=== PATIENT | male | born 1970 ===

== ENCOUNTER 2020-10-06 14:47 | Emergency (ER) | payer OTHER, SELFPAY ==
--- NOTE | 2020-10-06 15:24 | XR_ITS ---
EXAMINATION: XR KNEE, RIGHT CLINICAL INFORMATION: Pain COMPARISON: None TECHNIQUE: Four views of the right knee. FINDINGS: Bones and soft tissues are normal. No fracture or joint effusion. Alignment is anatomic. Joint spaces are well maintained. No abnormal soft tissue calcification. XR/XR knee RT 4V IMPRESSION: Normal right knee.
[2020-10-06 15:55] VITALS: BP 123/90; PULSE 73; RESP 16; TEMP 36.6; O2SAT 96; BMI 29.7
[2020-10-06] MEDS: Ketorolac Tromethamine 30 MG/ML VIAL IM (16:05)
--- NOTE | 2020-10-06 16:13 | ED_ITS ---
HPI - Extremity Injury (Lower) General Chief Complaint: Extremity Injury, Lower Stated Complaint: rt knee injury work related Source: patient Mode of arrival: wheelchair Limitations: no limitations History of Present Illness HPI Narrative: Patient presents to ED for right knee pain. Patient states he jumped over a wall and when he landed he heard a pop in his right knee. Patient states since then has not been able to put weight on his right leg due to knee pain. Patient denies fall to the ground, hitting head,or, loss of consciousness. Related Data Previous Rx's Medication Instructions Recorded cyclobenzaprine 10 mg PO TID PRN #15 tab 10/06/20 naproxen 500 mg PO BID PRN #20 tab 10/06/20 Allergies Allergy/AdvReac Type Severity Reaction Status Date / Time No Known Allergies Allergy Unverified 07/23/20 16:09 Review of Systems Review of Systems: Yes all other systems are reviewed and are negative Constitutional: Constitutional: Reports as per HPI and Reports no additional constitutional complaints Eyes: Eyes: Reports as per HPI and Reports no additional eye complaints ENT: Reports system reviewed and no additional complaints, except as documented and Reports as per HPI Cardiovascular: Cardiovascular: Reports as per HPI and Reports no additional cardiovascular complaints Respiratory: Respiratory: Reports as per HPI and Reports no additional respiratory complaints Gastrointestinal: Gastrointestinal: Reports as per HPI and Reports no additional gastrointestinal complaints Genitourinary: Genitourinary: Reports no additional male genitourinary complaints and Reports as per HPI Musculoskeletal: Musculoskeletal: Reports no additional musculoskeletal complaints, Reports as per HPI and Reports arthralgias ( Right knee) Neurologic: Reports system reviewed and no additional complaints, except as documented and Reports as per HPI Psychiatric: Psychiatric: Reports no additional psychiatric complaints and Reports as per HPI [facility] Past Medical History Medical History Deviated septum Sleep apnea Surgical History Hx of spinal fusion Social History Social History Advance Directives: No Advance Directives Information Provided: Yes Physical Exam Vital Signs: Vital Signs: Last Vital Signs Temp 97.9 F 10/06/20 15:55 Pulse 73 10/06/20 15:55 Resp 16 10/06/20 15:55 BP 123/90 H 10/06/20 15:55 Pulse Ox 96 10/06/20 15:55 Body Mass Index 29.7 Const: General: cooperative, healthy appearing, comfortable, no acute distress, well developed, alert, awake and Physically active Orientation/consciousness: patient oriented x3 HENMT: Head: Yes normal to inspection, Yes No palpable skull fracture present, Yes atraumatic, No Sim's sign, No contusion, No cranial bruits, No hematoma, No laceration, No palpable skull fracture, No raccoon eyes, No Temporal artery tenderness present and No periorbital ecchymosis Eyes: General: appearance normal, both eyes and all related structures Neck: Neck: Yes normal visual inspection, Yes full ROM, Yes no lymphadenopathy, Yes no meningeal signs, Yes trachea midline, Yes supple and No tender Chest: Chest palpation & inspection: normal inspection of the chest, normal palpation of entire chest wall and no localized rib tenderness Resp: Effort & Inspection: normal respiratory effort and able to speak in complete sentences Auscultation: clear to auscultation bilaterally Cardio: Jugular venous distension: no JVD Heart sounds: S1 normal heart sound present and S2 normal heart sound present GI: Inspection: Yes normal to inspection and No abdominal wall ecchymosis Palpation (GI): Soft to palpation, not firm, nontender, no guarding and not rigid : General: No CVA tenderness and Yes no CVA tenderness Back/Spine/Pelvis: Back: no CVA tenderness, No CVA tenderness and No back tenderness Skin: General skin exam: no rashes or lesions noted Neuro: General: patient oriented x3, no meningeal signs and CN's II-XI intact bilaterally Extrem: Other: positive for right knee tenderness on the medial aspect of knee. Patient able to flex and extend knee but with significant pain & limitation. Negative for any quadriceps tenderness or dip in quadriceps to indicate quadriceps tear. Patient's other extremities normal as complete range of motion. Right lower extremity vascular exam is intact. Psych: Appearance: grossly normal, well kempt and not disheveled Course Course Course Narrative: Patient will have a right knee x-ray to rule out any fracture. Toradol injection ordered Reevaluation(s) Reevaluation #1: the x-ray negative for any fractures as expected. Patient will be placed in knee immobilizer and crutches. Patient informed he will need MRI to make sure there is no meniscus / ligament tear. Patient will be discharged with naproxen Time: 16:17 MDM - Extremity Injury (Lower) MDM Narrative Medical decision making narrative: right knee pain Discharge Plan Discharge Clinical Impression: Knee sprain Patient Disposition: Home, Self-Care Instructions: Knee Sprain (ED) Additional Instructions: return to the ED for worsening knee pain, swelling, redness, swelling of legs, numbness/tingling of lower extremities, chest pain, shortness of breath, pa ralysis, or any other concerning symptoms. Prescriptions: New naproxen 500 mg tablet 500 mg PO BID PRN (Reason: pain) Qty: 20 RF: 0 cyclobenzaprine 10 mg tablet 10 mg PO TID PRN (Reason: sprain) Qty: 15 RF: 0 Referrals: [facility] [Provider Group] - 2 days ( right knee sprain. Will need MRI to rule out meniscus or ligament tear) Michael Simms MD [Primary Care Provider] - 2 days ( Right knee sprain. Will need MRI to rule out meniscus or ligament tear.) Stand Alone Forms: Work/School Release Interventions: ED Discharge Assessment Last Done: 10/06/20 16:51 Discharge Date/Time: 10/06/20 16:53 Print Language: Latvian
== END 2020-10-06 16:53 | disposition home or self-care (01) ==
PROVIDERS: Emergency Provider Emergency Medicine; PCP Internal Medicine
DX: S83.91XA Sprain of unspecified site of right knee, initial encounter (principal); X50.1XXA Overexertion from prolonged static or awkward postures, initial encounter; Y93.39 Activity, other involving climbing, rappelling and jumping off; Y92.239 Unspecified place in hospital as the place of occurrence of the external cause; Y99.0 Civilian activity done for income or pay
CPT/HCPCS: 73564; 96372; 99283; 99284; J1885

== ENCOUNTER → 2020-10-08 09:10 | Outpatient (BNVA) | payer OTHER, SELFPAY | PROVIDERS: PCP Internal Medicine; Visit Provider Internal Medicine | DX: M23.91 Unspecified internal derangement of right knee (principal) | CPT/HCPCS: 99203 ==

== ENCOUNTER 2020-10-09 17:31 | Outpatient (REF) | payer OTHER, SELFPAY ==
--- NOTE | 2020-10-09 17:45 | MR_ITS ---
EXAMINATION: MR KNEE WITHOUT CONTRAST, RIGHT CLINICAL INFORMATION: Twisting injury, non-weightbearing pain medial knee. COMPARISON: None. TECHNIQUE: MRI of the knee without contrast was performed using routine sequences on a high-field scanner. FINDINGS: MENISCI: Medial Meniscus: There is increased signal along the tibial articular surface of the posterior horn, indicative of a meniscal tear. Lateral Meniscus: Intact. LIGAMENTS: Cruciate: Intact. Collateral: Intact. EXTENSOR MECHANISM: Intact ARTICULAR CARTILAGE/BONE: Patellofemoral Compartment: Normal. Medial Compartment: There is a subtle concavity along the peripheral medial weightbearing portion the medial femoral condyle, compatible with osteochondral depression extending over 6 mm transverse and 15 mm AP. There is prominent marrow edema surrounding this portion of the condyle. The overlying articular cartilage appears grossly intact. The appearance is consistent with an area of impaction fracture/insufficiency fracture or evolving spontaneous osteonecrosis of the knee. Lateral Compartment: Normal. JOINT FLUID AND BURSAE: Trace effusion and Villavicencio's cyst. MR/MR knee RT wo con IMPRESSION: Tear of the medial meniscus. Abnormality along the peripheral medial weightbearing portion medial femoral condyle having the appearance of insufficiency fracture/osteochondral fracture, or spontaneous osteonecrosis of the knee with slight osteochondral depression resulting in prominent surrounding reactive edema.
== END 2020-10-09 17:32 | disposition home or self-care (01) ==
LOC: HO.MRI 17:31
PROVIDERS: Visit Provider Internal Medicine
DX: S89.81XA Other specified injuries of right lower leg, initial encounter (principal)
CPT/HCPCS: 73721

== ENCOUNTER → 2020-10-28 09:13 | Outpatient (BNVA) | payer OTHER, SELFPAY | PROVIDERS: PCP Internal Medicine; Visit Provider Orthopaedic Surgery | DX: Z76.89 Persons encountering health services in other specified circumstances (principal) ==

== ENCOUNTER → 2020-11-25 09:06 | Outpatient (BNVA) | payer OTHER, SELFPAY | PROVIDERS: PCP Internal Medicine; Visit Provider Orthopaedic Surgery | DX: S82.131D Displaced fracture of medial condyle of right tibia, subsequent encounter for closed fracture with routine healing (principal) | CPT/HCPCS: 99212 ==

== ENCOUNTER 2021-06-17 10:13 | Outpatient (REF) | payer OTHER, SELFPAY ==
[2021-06-17 10:16] LABS: MANUAL DIFF FLAG NO
[2021-06-17 10:46] LABS: Basophils Absolute Auto 0.1 X10*3/uL (0.0-0.2); Basophils Percent Auto 0.7 % (0-2); Eosinophils Absolute Auto 0.2 X10*3/uL (0.0-0.4); Eosinophils Percent Auto 2.6 % (0-4); Hematocrit 41.8 % (42-52); Hemoglobin 14.1 g/dl (14.0-18.0); Imm Gran Abs Auto 0.02 X10*3/uL (0.00-0.03); Imm Gran Pct Auto 0.3 % (0.0-0.4); Lymphocytes Absolute Auto 2.1 X10*3/uL (1.2-4.9); Lymphocytes Percent Auto 29.7 % (20-40); Mean Corpuscular HGB Conc 33.7 g/dl (31.0-36.0); Mean Corpuscular Hemoglobin 31.7 pg (27.0-33.0); Mean Corpuscular Volume 93.9 fL (80-98); Mean Platelet Volume 9.4 fL (9.4-12.4); Monocytes Absolute Auto 0.8 X10*3/uL (0.1-1.2); Monocytes Percent Auto 10.7 % (2-11); Platelet Count 235 X10*3/uL (160-400); Red Blood Count 4.45 X10*6/uL (4.60-5.80); Red Cell Distribution Width 12.3 % (11.0-16.0); White Blood Count 7.2 X10*3/uL (4.8-10.8)
[2021-06-17 10:54] LABS: Glucose Urine UA NEG (NEG); Leukocyte Esterase Urine NEG (NEG); Nitrite Urine NEG (NEG); Specific Gravity - Urine 1.025 (1.005-1.025); Urine Blood NEG (NEG); Urine Ketones NEG (NEG); Urine Protein NEG (NEG-TRACE)
[2021-06-17 10:55] LABS: Alanine Aminotransferase 38 U/L (0-40); Albumin Level 4.2 g/dL (3.5-5.0); Alkaline Phosphatase 79 U/L (39-117); Anion Gap 13 (12-20); Aspartate Amino Transferase 29 U/L (5-37); Bilirubin Total 0.6 mg/dL (0.0-1.0); Blood Urea Nitrogen 21 mg/dL (9-16); Calcium 9.3 mg/dL (8.4-10.2); Carbon Dioxide 25 mmol/L (22-29); Chloride 104 mmol/L (96-108); Cholesterol 183 mg/dL; Estimated Glomerular Filt Rate > 60; Glucose Fasting 102 mg/dL (60-99); HDL Cholesterol 39 mg/dL; LDL Cholesterol Calculated 113 mg/dl; Potassium 4.1 mmol/L (3.3-5.1); Sodium 138 mmol/L (135-145); Triglycerides 159 mg/dL
[2021-06-17 10:56] LABS: Appearance Urine CLEAR; Color Urine YELLOW
[2021-06-17 11:23] LABS: PSA,Total (Free>4and<10) 4.11 ng/mL (0.00-4.00)
[2021-06-18 11:36] LABS: Free Prostate Spec Ag 0.8 ng/mL; Percent Free Prostate Spec Ag 18 % (calc) (>25); Prostate Specific Ag Total 4.5 ng/mL (< OR = 4.0)
== END 2021-06-17 10:14 | disposition home or self-care (01) ==
LOC: HO.LNP 10:13
PROVIDERS: Visit Provider Internal Medicine
DX: Z00.00 Encounter for general adult medical examination without abnormal findings (principal); Z12.5 Encounter for screening for malignant neoplasm of prostate; R97.20 Elevated prostate specific antigen [PSA]
CPT/HCPCS: 80053; 80061; 81003; 84153; 84154; 85025

== ENCOUNTER 2021-09-28 10:44 | Outpatient (REF) | payer OTHER, SELFPAY ==
[2021-09-28 11:40] LABS: PSA,Total (Free>4and<10) 2.73 ng/mL (0.00-4.00)
== END 2021-09-28 10:45 | disposition home or self-care (01) ==
LOC: HO.LNP 10:44
PROVIDERS: PCP Internal Medicine; Visit Provider Internal Medicine
DX: Z12.5 Encounter for screening for malignant neoplasm of prostate (principal); R97.20 Elevated prostate specific antigen [PSA]
CPT/HCPCS: 84153

== ENCOUNTER 2022-04-11 05:52 | Observation (INO) | payer OTHER, SELFPAY ==
--- NOTE | ~2022-04-11 | XR_ITS ---
EXAMINATION: XR CHEST CLINICAL INFORMATION: Chest pain COMPARISON: Chest x-ray 11/19/2019 TECHNIQUE: 2 views of the chest were obtained. FINDINGS: Cardiac silhouette is normal in size. The lungs are mildly hypoinflated. There is no lobar consolidation. No pleural effusion or pneumothorax. Mild degenerative changes of the spine. Surgical changes of the cervical spine. XR/XR chest 2V IMPRESSION: No acute pulmonary pathology.
--- NOTE | ~2022-04-11 | NM_ITS ---
EXAMINATION: PULMONARY PERFUSION STUDY CLINICAL INFORMATION: Chest pain, elevated troponins, cough; rule out pulmonary embolism. COMPARISON: No previous lung scan is available for comparison. Radiographs the chest dated 04/11/2022, the same date as this lung scan, are available for comparison. TECHNIQUE: Following the intravenous injection of 4.0 mCi Tc-99m MAA, the lungs were imaged in the anterior and posterior, left and right lateral and FIJIAN, LYNN, LPO, and RPO projections using a gamma scintillation camera. FINDINGS: No segmental perfusion defects are present. There is homogeneous distribution of activity bilaterally. There are no focal anatomic appearing perfusion defects present. NM/NM pul perfusion IMPRESSION: Normal radionuclide lung perfusion scan.
[2022-04-11 05:57] VITALS: BP 131/87; PULSE 74; RESP 19; TEMP 36.6; O2SAT 98; BMI 29.7
[2022-04-11 06:21] LABS: Hematocrit 38.7 % (42.0-52.0); Hemoglobin 13.6 g/dl (14.0-18.0); Mean Corpuscular HGB Conc 35.1 g/dl (31.0-36.0); Mean Corpuscular Hemoglobin 31.6 pg (27.0-33.0); Mean Platelet Volume 8.3 fL (9.4-12.4); Platelet Count 226 X10*3/uL (160-400); White Blood Count 5.7 X10*3/uL (4.8-10.8)
[2022-04-11 06:37] LABS: COVID-19 Test Negative (Negative)
[2022-04-11 06:40] LABS: Alanine Aminotransferase 36 U/L (0-40); Alkaline Phosphatase 63 U/L (39-117); Anion Gap 15 (12-20); Aspartate Amino Transferase 42 U/L (5-37); Bilirubin Total 0.5 mg/dL (0.0-1.0); Blood Urea Nitrogen 19 mg/dL (9-16); Calcium 8.9 mg/dL (8.4-10.2); Carbon Dioxide 24 mmol/L (22-29); Chloride 108 mmol/L (96-108); Creatinine Clr Calc Pharmacy 113.3; Estimated Glomerular Filt Rate > 60; Glucose Random 101 mg/dL (60-115); IDNOW Serial# 9DB6401D; Influenza A Negative (Negative); Influenza B2 Negative (Negative); Potassium 3.5 mmol/L (3.3-5.1); Sodium 143 mmol/L (135-145)
--- NOTE | 2022-04-11 07:07 | ED_ITS ---
HPI - URI/Sore Throat General Chief Complaint: Upper Respiratory Symptoms Stated Complaint: sob chest discomfort Time Seen by Provider: 04/11/22 06:52 Source: patient and family () Mode of arrival: ambulatory History of Present Illness HPI Narrative: 51-year-old male who presents with increasing chest congestion with cough, sore throat but denies fevers or chills and states that is progressively worsened over the past 2-3 weeks feels short of breath and increasing fatigue. Patient is noted to have anxiety, IBS, SELENA. Related Data Home Medications Medication Instructions Recorded Confirmed hyoscyamine sulfate 0.125 mg 0.125 mg PO BID-QID PRN 10/28/20 sublingual tablet citalopram 20 mg tablet 1 tab PO DAILY 04/11/22 04/11/22 hyoscyamine sulfate 0.375 mg 1 tab PO Q12H 04/11/22 04/11/22 tablet,extended release,12 hr lorazepam 0.5 mg tablet 0.5 mg PRN 04/11/22 Allergies Allergy/AdvReac Type Severity Reaction Status Date / Time No Known Allergies Allergy Unverified 07/23/20 16:09 Review of Systems Review of Systems: Pertinent positives and negatives as stated in HPI 10 point review of systems is otherwise negative. 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 GENERAL: Well developed, well nourished, in no acute distress. HEAD: Normocephalic/atraumatic EYES: PERRLA, EOMI EARS: Ext canals without abnormality, TMs non-bulging and non-erythematous NOSE: Nasal congestion OROPHARYNX: no oral lesions noted, posterior pharynx clear and non-erythematous with noted tonsillar enlargement/erythema/exudates NECK: Supple, no adenopathy LUNGS: Normal breath sounds. No adventitious sounds or accessory muscle use. SpO2<98> CARDIOVASCULAR: Regular rate and rhythm without noted murmurs, no JVD or lower extremity edema. ABDOMEN: Soft, non-tender, non-distended with bowel sounds. MUSCULOSKELETAL: No tenderness, deformities, or effusions noted on gross inspection. EXTREMITIES: No cyanosis, clubbing or edema. SKIN: Inspection of the skin reveals no rashes NEUROLOGIC: Alert and oriented x 4. Strength and sensation to light touch were grossly intact x 4. Course Course Course Narrative: 51-year-old male with history and clinical presentation consistent with a combination postnasal drip and viral URI. Patient is afebrile without com plaints of sinus pain. On review of EKG patient has noted Q-waves with inverted T-waves in the lead 3 and in QT prolongation prompting an add on of trop which was returned as over 1141.1. Patient has had this chest discomfort for 2 weeks and will repeat troponin stat to evaluate for trend. Also repeat EKG obtained and patient provided with 324 of aspirin. 0938: Repeat troponin is noted to be 12 90, Cardiology informed, I also discussed the case with inpatient hospitalist who accepts admission. The echocardiogram complete has been ordered as per cardiology recommendations and currently obtaining coags to include D-dimer. Reevaluation(s) Reevaluation #1: I discussed this case with cardiology who recommends repeat trops and order complete echo Time: 08:40 MDM - URI/Sore Throat Lab Data Result diagrams: 04/11/22 06:07 04/11/22 06:07 Labs: Lab Results 04/11/22 04/11/22 04/11/22 Range/Units 06:07 06:07 06:07 WBC 5.7 (4.8-10.8) X10*3/uL RBC 4.30 L (4.60-5.80) X10*6/uL Hgb 13.6 L (14.0-18.0) g/dl Hct 38.7 L (42.0-52.0) % MCV 90.0 (80.0-98.0) fL MCH 31.6 (27.0-33.0) pg MCHC 35.1 (31.0-36.0) g/dl RDW 12.0 (11.0-16.0) % Plt Count 226 (160-400) X10*3/uL MPV 8.3 L (9.4-12.4) fL Absolute Nucleated RBC 0.000 (0.0-0.012) X10*3/uL Nucleated RBC % (auto) 0.0 (0.0-0.2) /100WBC Sodium 143 (135-145) mmol/L Potassium 3.5 (3.3-5.1) mmol/L Chloride 108 (96-108) mmol/L Carbon Dioxide 24 (22-29) mmol/L Anion Gap 15 (12-20) BUN 19 H (9-16) mg/dL Creatinine 0.79 (0.5-1.4) mg/dL Estim Creat Clear Calc 113.3 Estimated GFR > 60 Random Glucose 101 (60-115) mg/dL Calcium 8.9 (8.4-10.2) mg/dL Total Bilirubin 0.5 (0.0-1.0) mg/dL AST 42 H D (5-37) U/L ALT 36 (0-40) U/L Alkaline Phosphatase 63 D (39-117) U/L Troponin I High Sens (<3.5-35.0) ng/L B-Natriuretic Peptide (<100) pg/mL Total Protein 7.0 (6.5-8.0) g/dL Albumin 4.0 (3.5-5.0) g/dL COVID-19 ([facility]) (Negative) COVID-19 Clin Com Influenza Type A ([facility]) Negative (Negative) Influenza Type B ([facility]) Negative (Negative) Influenza A & B Note See Note S. pyogenes GrpA BRYNN (Negative) 04/11/22 04/11/22 04/11/22 Range/Units 06:07 06:07 07:17 WBC (4.8-10.8) X10*3/uL RBC (4.60-5.80) X10*6/uL Hgb (14.0-18.0) g/dl Hct (42.0-52.0) % MCV (80.0-98.0) fL MCH (27.0-33.0) pg MCHC (31.0-36.0) g/dl RDW (11.0-16.0) % Plt Count (160-400) X10*3/uL MPV (9.4-12.4) fL Absolute Nucleated RBC (0.0-0.012) X10*3/uL Nucleated RBC % (auto) (0.0-0.2) /100WBC Sodium (135-145) mmol/L Potassium (3.3-5.1) mmol/L Chloride (96-108) mmol/L Carbon Dioxide (22-29) mmol/L Anion Gap (12-20) BUN (9-16) mg/dL Creatinine (0.5-1.4) mg/dL Estim Creat Clear Calc Estimated GFR Random Glucose (60-115) mg/dL Calcium (8.4-10.2) mg/dL Total Bilirubin (0.0-1.0) mg/dL AST (5-37) U/L ALT (0-40) U/L Alkaline Phosphatase (39-117) U/L Troponin I High Sens 1141.1 H* (<3.5-35.0) ng/L B-Natriuretic Peptide 42 (<100) pg/mL Total Protein (6.5-8.0) g/dL Albumin (3.5-5.0) g/dL COVID-19 ([facility]) Negative (Negative) COVID-19 Clin Com See Note Influenza Type A ([facility]) (Negative) Influenza Type B ([facility]) (Negative) Influenza A & B Note S. pyogenes GrpA [facility] Negative (Negative) 04/11/22 Range/Units 08:43 WBC (4.8-10.8) X10*3/uL RBC (4.60-5.80) X10*6/uL Hgb (14.0-18.0) g/dl Hct (42.0-52.0) % MCV (80.0-98.0) fL MCH (27.0-33.0) pg MCHC (31.0-36.0) g/dl RDW (11.0-16.0) % Plt Count (160-400) X10*3/uL MPV (9.4-12.4) fL Absolute Nucleated RBC (0.0-0.012) X10*3/uL Nucleated RBC % (auto) (0.0-0.2) /100WBC Sodium (135-145) mmol/L Potassium (3.3-5.1) mmol/L Chloride (96-108) mmol/L Carbon Dioxide (22-29) mmol/L Anion Gap (12-20) BUN (9-16) mg/dL Creatinine (0.5-1.4) mg/dL Estim Creat Clear Calc Estimated GFR Random Glucose (60-115) mg/dL Calcium (8.4-10.2) mg/dL Total Bilirubin (0.0-1.0) mg/dL AST (5-37) U/L ALT (0-40) U/L Alkaline Phosphatase (39-117) U/L Troponin I High Sens 1290.9 H* (<3.5-35.0) ng/L B-Natriuretic Peptide (<100) pg/mL Total Protein (6.5-8.0) g/dL Albumin (3.5-5.0) g/dL COVID-19 ([facility]) (Negative) COVID-19 Clin Com Influenza Type A ([facility]) (Negative) Influenza Type B ([facility]NN) (Negative) Influenza A & B Note S. pyogenes GrpA [facility]NN (Negative) ECG Data Attestation: I personally reviewed and interpreted this ECG as follows: Prior ECG tracings: available for review Interpretation: 0712: Sinus rhythm, HR-75, no STEMI, lead 3 questionable Q-wave with T-wave inversion. 0824: SR, HR-74, no STEMI, QT prolonged and QRS borderline. There is noted Q- wave in lead 3 with T-wave inversion. Discharge Plan Discharge Clinical Impression: Chest pain, ACS (acute coronary syndrome), Elevated troponin Patient Disposition: Admitted As Inpatient Prescriptions: No Action citalopram 20 mg tablet 1 tab PO DAILY 0RF hyoscyamine sulfate 0.375 mg tablet extended release 12 hr 1 tab PO Q12H 0RF lorazepam 0.5 mg Tablet 0.5 mg PRN (Reason: Anxiety) 0RF
--- NOTE | 2022-04-11 07:08 | ECG_ITS ---
Test Reason : CHEST PAIN Blood Pressure : / mmHG Vent. Rate : 075 BPM Atrial Rate : 075 BPM P-R Int : 152 ms QRS Dur : 100 ms QT Int : 404 ms P-R-T Axes : 016 035 005 degrees QTc Int : 451 ms Artifact in tracing Normal sinus rhythm Normal EKG When compared with ECG of 20-NOV-2019 11:07, QT has lengthened Referred By: Rafaela Stafford Electronically Signed By:INDIO MENENDEZ
[2022-04-11] MEDS: Ketorolac Tromethamine 15 MG/ML VIAL IVPUSH (07:22)
[2022-04-11] MEDS: Acetaminophen 325 MG TABLET 975 MG PO (07:22)
[2022-04-11 07:42] LABS: Strep A Nucleic Acid Negative (Negative)
--- NOTE | 2022-04-11 08:00 | ECG_ITS ---
Test Reason : chest pain Blood Pressure : / mmHG Vent. Rate : 074 BPM Atrial Rate : 074 BPM P-R Int : 158 ms QRS Dur : 104 ms QT Int : 400 ms P-R-T Axes : 004 033 001 degrees QTc Int : 444 ms Normal sinus rhythm Normal ECG When compared with ECG of 11-APR-2022 07:12, No significant change was found Referred By: Rafaela Stafford Electronically Signed By:INDIO MENENDEZ
[2022-04-11 08:17] LABS: Troponin-I High Sensitivity 1141.1 ng/L (<3.5-35.0)
[2022-04-11 08:50] LABS: B Type Natriuretic Peptide 42 pg/mL (<100)
[2022-04-11] MEDS: Aspirin 81 MG TAB.CHEW 324 MG PO (08:52)
[2022-04-11 09:15] LABS: Troponin-I High Sensitivity 1290.9 ng/L (<3.5-35.0)
--- NOTE | 2022-04-11 09:22 | CA_ITS ---
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 The calculated ejection fraction is 60% by biplane method. - No obvious valvular pathology seen on this study. - There is mild dilatation of the ascending aorta measuring 4.10 cm. Findings Left Ventricle Normal left ventricular cavity size. There is normal left ventricular wall thickness. The left ventricular systolic function is normal. The calculated ejection fraction is 60% by biplane method. There is no evidence of regional wall motion abnormalities. Diastolic function is normal for age. Right Ventricle Normal right ventricular cavity size and systolic function. Atria Both atria are normal in size. Aortic Valve There is a normal trileaflet aortic valve. There is no aortic valve stenosis. There is no aortic valve regurgitation. Mitral Valve The mitral valve appears normal. There is trace mitral valve regurgitation. There is no mitral valve stenosis. Pulmonic Valve The pulmonic valve is likely normal. Tricuspid Valve There is trace tricuspid valve regurgitation. The pulmonary artery systolic pressure is normal. Great Vessels There is mild dilatation of the ascending aorta measuring 4.10 cm. Venous The inferior vena cava is normal in size and collapses greater than 50% with inspiration. Pericardium/Pleural There is no evidence of pericardial effusion. Prior Study Comparison No significant change compared to prior study dated: 11/20/2019. (reporting delayed due to technical issues). Recommendations, Care & Conclusions No obvious valvular pathology seen on this study. Measurements 2D Linear Measurements IVSd: 1.05 0.6-0.9/0.6-1.0 cm LVIDd: 5.31 3.9-5.3/4.2-5.9 cm LVIDs: 3.37 2.0-3.6 cm LVPWd: 1.10 0.7-1.1 cm LA Diam: 3.90 2.7-3.8/3.0-4.0 cm LVOT Diam: 2.10 3.0+(-)1.3 cm 2D Systolic Function EF 4C: 59.70 >55% EF 2C: 61.30 >55% EF BiP: 60.00 >55% Mitral Valve MV Pk E: 0.81 MV PK A: 0.57 MV Decel Time: 177.00 E/A: 1.40 E'Lateral: 13.10 E'Medial: 8.59 E/E' Med: 9.50 E/E' Lat: 6.20 PHT: 52.00 Aortic Valve AoV Pk Levi: 1.52 AoV Mn Levi: 1.03 AoV VTI: 33.20 AoV Pk Grad: 9.00 Aov Mn Grad: 5.00 DENAE Cont.VTI: 3.41 LVOT LVOT Pk Levi: 1.51 LVOT Mn Levi: 0.99 LVOT VTI: 32.70 LVOT Pk Grad: 9.00 LVOT Mn Grad: 5.00 LVOT Diam: 2.10 Diastolic Function MV Pk E: 0.81 MV Pk A: 0.57 E/A: 1.40 E'Medial: 8.59 E/E' Med: 9.50 E' Laterial: 13.10 E/E' Lat: 6.20 Right Ventricle TAPSE (mm): 24.90 TVS' Levi: 15.40 Tricuspid Valve RA Press: 3.00 Great Vessels Aorta Sinus of Valsalva: 3.87 2.0-3.[address] [place]: 3.78 1.7-3.4 cm Ao Asc: 4.10 2.1-3.4 cm Updated in Other Vendor System with Status of Final Tamir Rivera MD electronically signed on 04/13/2022 4:34:43 PM with status of Final
[2022-04-11 09:25] VITALS: BP 122/80; PULSE 80; RESP 24; TEMP 36.8; O2SAT 95
[2022-04-11 09:49] LABS: INTERNATIONAL NORM RATIO 1.2 (0.9-1.1); Prothrombin Time 13.2 SEC (9.9-13.0)
[2022-04-11 09:52] LABS: D Dimer High Sensitivity < 150 NG/ML
--- NOTE | 2022-04-11 09:53 | PM.IMHP ---
History of Present Illness Date of Service: 04/11/22 Chief Complaint: chest pain, cough, shortness of breath This is a 51 yo M with a PMH of SELENA on CPAP, IBS, spinal fusion, deviated nasal septum who presents to the ED with complaints of substernal chest pain. The patient reports that his symptoms began with a cough about 2 weeks ago and slowly progressed to achy/dull chest pain which was intermittent in nature. There was no associated fevers or chills but he did report exposure to family who was sick with likely URI. He reports that there was some associated shortness of breath. He reports that his symptoms were not initially with exertion and typically would last minutes but yesterday while doing house work, he noticed pain with exertion which improved after rest. Hence, the reason for the ED visit. In the ED, his work up revealed an elevated HS trop-I -- 1100 followed by 1200. His EKG showed non-specific changes. He was given IV toradal (minimal improvement in his pain), tylenol and aspirin. His case was d/w cardiology and admission was requested. Review of Systems Review of Systems: negative except HPI [facility] Medical History Deviated septum IBS (irritable bowel syndrome) Sleep apnea Pertinent family history: Blood cancer in father Ovarian Ca in mother Surgical History Hx of spinal fusion Social History (Updated 04/11/22 @ 09:59 by Best Leo MD) Alcohol intake: never Patient Tobacco Use Status: Never used Tobacco Use of substances other than those prescribed or required for medical reasons: No Advance Directives: Yes Advance Directives Information Provided: Yes Advance Directives on File: No Current occupational status: employed 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 Allergies Allergy/AdvReac Type Severity Reaction Status Date / Time No Known Allergies Allergy Unverified 07/23/20 16:09 Active Medications: Current Medications Acetaminophen (Acetaminophen 325 Mg Tablet) 650 mg PO Q6H PRN PRN Reason: Pain, Mild (Pain Scale 1-3) Sodium Chloride (Ns) 1,000 mls @ 999 mls/hr IVCONT .Q1H1M [facility] Stop: 04/11/22 11:00 Lorazepam (Lorazepam 0.5 Mg Tablet) 0.5 mg PO Q6H PRN PRN Reason: Anxiety Morphine Sulfate (Morphine Sulfate 2 Mg/Ml Cartridge) 2 mg IVPUSH Q3H PRN; Protocol PRN Reason: Chest Pain Ondansetron HCl (Ondansetron Hcl 4 Mg/2 Ml Vial) 4 mg IVPUSH Q8H PRN PRN Reason: Nausea and Vomiting Sodium Chloride (0.9 % Sodium Chloride Flush 3 Ml Syringe) 3 ml IVFLUSH [facility] Medications Medication Instructions Recorded Confirmed Last Taken Type citalopram 20 mg tablet 1 tab PO DAILY 04/11/22 04/11/22 Unknown History hyoscyamine sulfate 0.375 mg 1 tab PO Q12H 04/11/22 04/11/22 Unknown History tablet,extended release,12 hr Physical Exam Vital Signs and Narrative: Vital Signs: Last Vital Signs Temp 98.3 F 04/11/22 09:25 Pulse 80 04/11/22 09:25 Resp 24 H 04/11/22 09:25 BP 122/80 04/11/22 09:25 Pulse Ox 95 04/11/22 09:25 BMI result Body Mass Index 29.7 Const: Other: Constitutional - Awake and Alert, No apparent distress Eyes - PERRLA, EOMI Cardiovascular - S1S2, RRR, No edema Respiratory - Normal lung expansion, Normal respiratory effort, No respiratory distress, CTA bilaterally Gastrointestinal - NT / ND; +BS; No rebound or guarding - No CVA tenderness Extremities - no calf tenderness bilaterally, no swelling Musculoskeletal - Normal inspection, normal ROM Skin - Warm/Dry Neurological - Alert & oriented x3, No focal deficit Psychological - Appropriate affect Results Labs CBC and Chem 7: 04/11/22 06:07 04/11/22 06:07 Labs: Laboratory Results - last 24 hr 04/11/22 04/11/22 04/11/22 06:07 06:07 06:07 MCV 90.0 MCH 31.6 MCHC 35.1 RDW 12.0 Plt Count 226 MPV 8.3 L Absolute Nucleated RBC 0.000 Nucleated RBC % (auto) 0.0 PT INR D-Dimer High Sensitivty Anion Gap 15 Estim Creat Clear Calc 113.3 Estimated GFR > 60 Random Glucose 101 Calcium 8.9 Total Bilirubin 0.5 AST 42 H D ALT 36 Alkaline Phosphatase 63 D Troponin I High Sens B-Natriuretic Peptide Total Protein 7.0 Albumin 4.0 COVID-19 (SAIRA) COVID-19 Clin Com Influenza Type A (BRYNN) Negative Influenza Type B (BRYNN) Negative Influenza A & B Note See Note S. pyogenes GrpA BRYNN 04/11/22 04/11/22 04/11/22 06:07 06:07 07:17 MCV MCH MCHC RDW Plt Count MPV Absolute Nucleated RBC Nucleated RBC % (auto) PT INR D-Dimer High Sensitivty Anion Gap Estim Creat Clear Calc Estimated GFR Random Glucose Calcium Total Bilirubin AST ALT Alkaline Phosphatase Troponin I High Sens 1141.1 H* B-Natriuretic Peptide 42 Total Protein Albumin COVID-19 (SAIRA) Negative COVID-19 Clin Com See Note Influenza Type A (BRYNN) Influenza Type B (BRYNN) Influenza A & B Note S. pyogenes GrpA BRYNN Negative 04/11/22 04/11/22 04/11/22 08:43 09:33 09:33 MCV MCH MCHC RDW Plt Count MPV Absolute Nucleated RBC Nucleated RBC % (auto) PT 13.2 H INR 1.2 H D-Dimer High Sensitivty < 150 Anion Gap Estim Creat Clear Calc Estimated GFR Random Glucose Calcium Total Bilirubin AST ALT Alkaline Phosphatase Troponin I High Sens 1290.9 H* B-Natriuretic Peptide Total Protein Albumin COVID-19 (SAIRA) COVID-19 Clin Com Influenza Type A (BRYNN) Influenza Type B (BRYNN) Influenza A & B Note S. pyogenes GrpA BRYNN Imaging Radiologist's Impressions: Impressions Chest X-Ray 04/11/22 08:03 IMPRESSION: No acute pulmonary pathology. Assessment and Plan (1) Elevated troponin: Status: Acute Plan This is a 51 yo M with a PMH SELENA on CPAP, IBS who presents to the ED with complaints of atypical chest pain for 2 weeks duration. He has associated cough and shortness of breath. His work up currently shows an elevated HS trop-I with non-specific EKG changes. He will be admitted for further care. 1. Possible ACS vs pericardial/myocardial disease vs PE check VQ. check eESR 2d echo and cardiology consult Repeat 3rd trop -- 1st two: 1141 -> 1290 Monitor on tele Patient had a normal stress test in November 2019 2. Generalized anxiety disorder continue baseline meds 3. IBS continue baseline meds 4. SELENA CPAP at night Full Code DVT pptx, Lovenox Endorses his as HCP Quality Stroke Does the patient have a stroke diagnosis?: No VTE Prior VTE?: No VTE Risk Level:: Medical - moderate - high VTE Device Contraindication: Treatment Not Indicated VTE Drug Contraindication: N/A - Med Ordered
[2022-04-11] MEDS: 0.9 % Sodium Chloride 1,000 ML 999 ML IVCONT (10:03)
[2022-04-11 10:28] LABS: Amphetamine Screen Urine Not Detected (Not Detect); Barbiturates, Urine Not Detected (Not Detect); Benzodiazepines Screen Urine Not Detected (Not Detect); Cannabinoid Screen Urine Not Detected (Not Detect); Cocaine Screen Urine Not Detected (Not Detect); Fentanyl, urine Not Detected (Not Detect); Opiate Screen Urine Not Detected (Not Detect); Phencyclidine Screen Urine Not Detected (Not Detect)
--- NOTE | 2022-04-11 10:37 | PM.CNCAR ---
History of Present Illness History of Present Illness Date of Service: 04/11/22 Chief complaint: chest pain elevated trop I Narrative: This is a cardiology consultation regarding elevated troponins. Patient does not have any known cardiac issues. No known coronary artery disease or myocardial infarction or cardiomyopathy or in fact any other cardiac issues in the past. He states that he has not been doing well for the last 2 weeks or so. Generalized tiredness and fatigue and nonspecific constitutional complaints. One episode of fever of almost 102 degrees F. On other occasion, he felt as though his whole body was warm. Otherwise, he has also been having chest pains that felt like a pressure. Intermittently for the last couple of weeks. With and without exertion. In when he is resting sometimes he feels it. Some increase with coughing. Overall, atypical for angina. No other cardiac symptoms at this time. Not a known diabetic or hypertensive. Nonsmoker. Review of Systems Review of Systems: Yes all other systems are reviewed and are negative Constitutional: Constitutional: Reports as per HPI, Reports fatigue, Reports fever(s) and Reports weakness Eyes: Eyes: Reports as per HPI ENT: Reports as per HPI Cardiovascular: Cardiovascular: Reports as per HPI, Denies acrocyanosis, Denies cool extremities, Reports chest pain, Denies leg edema, Denies lightheadedness, Denies palpitations and Denies dyspnea Respiratory: Respiratory: Reports as per HPI, Reports chest congestion, Reports cough and Denies dyspnea Gastrointestinal: Gastrointestinal: Reports as per HPI and Reports no additional gastrointestinal complaints Genitourinary: Genitourinary: Reports no additional male genitourinary complaints and Reports as per HPI Musculoskeletal: Musculoskeletal: Reports no additional musculoskeletal complaints and Reports as per HPI Integumentary/Breasts: Skin/Breast: Reports system reviewed and no additional complaints, except as docu Neurologic: Reports system reviewed and no additional complaints, except as documented, Reports as per HPI and Reports weakness Psychiatric: Psychiatric: Reports no additional psychiatric complaints and Reports as per HPI Endocrine: Endocrine: Reports no additional endocrine complaints, Reports as per HPI, Reports fatigue and Denies palpitations Hematologic/Lymphatic: Hematologic/Lymphatic: Reports no additional hematologic/lymphatic complaints and Reports as per HPI Allergic/Immunologic: Allergic/Immunologic: Reports no additional allergic/immunologic complaints and Reports as per HPI [facility] Past Medical History Medical History Deviated septum IBS (irritable bowel syndrome) Sleep apnea Family History Pertinent family history: No significant cardiac issues in family including parents or siblings. 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 Allergies Allergy/AdvReac Type Severity Reaction Status Date / Time No Known Allergies Allergy Unverified 07/23/20 16:09 Active Medications: Current Medications Acetaminophen (Acetaminophen 325 Mg Tablet) 650 mg PO Q6H PRN PRN Reason: Pain, Mild (Pain Scale 1-3) Sodium Chloride (Ns) 1,000 mls @ 999 mls/hr IVCONT .Q1H1M [facility] Stop: 04/11/22 11:00 Last Admin: 04/11/22 10:03 Dose: 999 mls/hr Documented by: Lorazepam (Lorazepam 0.5 Mg Tablet) 0.5 mg PO Q6H PRN PRN Reason: Anxiety Morphine Sulfate (Morphine Sulfate 2 Mg/Ml Cartridge) 2 mg IVPUSH Q3H PRN; Protocol PRN Reason: Chest Pain Ondansetron HCl (Ondansetron Hcl 4 Mg/2 Ml Vial) 4 mg IVPUSH Q8H PRN PRN Reason: Nausea and Vomiting Pharmacy Consult (Consult Rx Perform Med Rec) 1 each MISCELLANE ONCE PRN PRN Reason: Consult order Sodium Chloride (0.9 % Sodium Chloride Flush 3 Ml Syringe) 3 ml IVFLUSH QSHIFT [facility] Home Medications Medication Instructions Recorded Confirmed Last Taken Type hyoscyamine sulfate 0.125 mg 0.125 mg PO BID-QID PRN 10/28/20 Unknown History sublingual tablet citalopram 20 mg tablet 1 tab PO DAILY 04/11/22 04/11/22 Unknown History hyoscyamine sulfate 0.375 mg 1 tab PO Q12H 04/11/22 04/11/22 Unknown History tablet,extended release,12 hr lorazepam 0.5 mg tablet 0.5 mg PRN 04/11/22 2 Days Ago History ~04/09/22 Physical Exam Vital Signs: Vital Signs: Last Vital Signs Temp 98.3 F 04/11/22 09:25 Pulse 80 04/11/22 09:25 Resp 24 H 04/11/22 09:25 BP 122/80 04/11/22 09:25 Pulse Ox 95 04/11/22 09:25 BMI result Body Mass Index 29.7 Const: General: comfortable and no acute distress Orientation/consciousness: patient oriented x3 HEENT: Other: Unremarkable Head: Yes normal to inspection Neck: Neck: Yes normal visual inspection Chest: Chest palpation & inspection: normal inspection of the chest Resp: Auscultation: clear to auscultation bilaterally Cardio: Palpation: normal PMI Heart sounds: S1 normal heart sound present, S2 normal heart sound present, no gallops, no murmurs and no rubs GI: Palpation (GI): Soft to palpation Back/Spine/Pelvis: Other: unremarkable Skin: General skin exam: no rashes or lesions noted Neuro: General: patient oriented x3 Extrem: General: Yes normal to inspection Psych: Mental Status: mental status grossly normal Objective Labs and Meds Result diagrams: 04/11/22 06:07 04/11/22 06:07 Lab results: Laboratory Results - last 24 hr 04/11/22 04/11/22 04/11/22 06:07 06:07 06:07 WBC 5.7 RBC 4.30 L Hgb 13.6 L Hct 38.7 L MCV 90.0 MCH 31.6 MCHC 35.1 RDW 12.0 Plt Count 226 MPV 8.3 L Absolute Nucleated RBC 0.000 Nucleated RBC % (auto) 0.0 ESR PT INR D-Dimer High Sensitivty Sodium 143 Potassium 3.5 Chloride 108 Carbon Dioxide 24 Anion Gap 15 BUN 19 H Creatinine 0.79 Estim Creat Clear Calc 113.3 Estimated GFR > 60 Random Glucose 101 Calcium 8.9 Total Bilirubin 0.5 AST 42 H D ALT 36 Alkaline Phosphatase 63 D Troponin I High Sens C-Reactive Protein 2.70 H B-Natriuretic Peptide Total Protein 7.0 Albumin 4.0 Urine Opiates Screen Urine Fentanyl Screen Ur Barbiturates Screen Ur Phencyclidine Scrn Ur Amphetamines Screen U Benzodiazepines Scrn Urine Cocaine Screen U Marijuana (THC) Screen COVID-19 ([facility]A) COVID-19 Clin Com Influenza Type A (BRYNN) Negative Influenza Type B (BRYNN) Negative Influenza A & B Note See Note S. pyogenes GrpA BRYNN 04/11/22 04/11/22 04/11/22 06:07 06:07 06:12 WBC RBC Hgb Hct MCV MCH MCHC RDW Plt Count MPV Absolute Nucleated RBC Nucleated RBC % (auto) ESR Cancelled PT INR D-Dimer High Sensitivty Sodium Potassium Chloride Carbon Dioxide Anion Gap BUN Creatinine Estim Creat Clear Calc Estimated GFR Random Glucose Calcium Total Bilirubin AST ALT Alkaline Phosphatase Troponin I High Sens 1141.1 H* C-Reactive Protein B-Natriuretic Peptide 42 Total Protein Albumin Urine Opiates Screen Urine Fentanyl Screen Ur Barbiturates Screen Ur Phencyclidine Scrn Ur Amphetamines Screen U Benzodiazepines Scrn Urine Cocaine Screen U Marijuana (THC) Screen COVID-19 (SAIRA) Negative COVID-19 Clin Com See Note Influenza Type A (BRYNN) Influenza Type B (BRYNN) Influenza A & B Note S. pyogenes GrpA BRYNN 04/11/22 04/11/22 04/11/22 07:17 08:43 09:33 WBC RBC Hgb Hct MCV MCH MCHC RDW Plt Count MPV Absolute Nucleated RBC Nucleated RBC % (auto) ESR PT 13.2 H INR 1.2 H D-Dimer High Sensitivty Sodium Potassium Chloride Carbon Dioxide Anion Gap BUN Creatinine Estim Creat Clear Calc Estimated GFR Random Glucose Calcium Total Bilirubin AST ALT Alkaline Phosphatase Troponin I High Sens 1290.9 H* C-Reactive Protein B-Natriuretic Peptide Total Protein Albumin Urine Opiates Screen Urine Fentanyl Screen Ur Barbiturates Screen Ur Phencyclidine Scrn Ur Amphetamines Screen U Benzodiazepines Scrn Urine Cocaine Screen U Marijuana (THC) Screen COVID-19 ([facility]IRA) COVID-19 Clin Com Influenza Type A (BRYNN) Influenza Type B (BRYNN) Influenza A & B Note S. pyogenes GrpA BRYNN Negative 04/11/22 04/11/22 09:33 10:02 WBC RBC Hgb Hct MCV MCH MCHC RDW Plt Count MPV Absolute Nucleated RBC Nucleated RBC % (auto) ESR PT INR D-Dimer High Sensitivty < 150 Sodium Potassium Chloride Carbon Dioxide Anion Gap BUN Creatinine Estim Creat Clear Calc Estimated GFR Random Glucose Calcium Total Bilirubin AST ALT Alkaline Phosphatase Troponin I High Sens C-Reactive Protein B-Natriuretic Peptide Total Protein Albumin Urine Opiates Screen Not Detected Urine Fentanyl Screen Not Detected Ur Barbiturates Screen Not Detected Ur Phencyclidine Scrn Not Detected Ur Amphetamines Screen Not Detected U Benzodiazepines Scrn Not Detected Urine Cocaine Screen Not Detected U Marijuana (THC) Screen Not Detected COVID-19 ([facility]IRA) COVID-19 Clin Com Influenza Type A (BRYNN) Influenza Type B (BRYNN) Influenza A & B Note S. pyogenes GrpA BRYNN ECG Interpretation: EKG with sinus rhythm at 74/Min; nonspecific ST-T changes inferior leads Normal MT/QTc. Imaging Radiologist's impression: Impressions Chest X-Ray 04/11/22 08:03 IMPRESSION: No acute pulmonary pathology. Assessment and Plan (1) Acute viral disease: Status: Acute (2) Elevated troponin: Status: Acute Plan His symptoms are somewhat atypical for NSTEMI. More consistent with an acute infection, possibly viral. High sensitivity troponins at 1141 followed by 1290. CRP is high at 2.7. Cardiac BNP 42. BUN and AST are minimally abnormal. Hemoglobin 13.6. White cells 5.7. Tox screen negative. COVID negative. Influenza also negative. Chest x-ray unremarkable. Overall, troponin elevation probably more likely from myocarditis as opposed to NSTEMI. We will get an echocardiogram to assess his LVEF and wall motion. Based on this, will decide on anticoagulation. Otherwise, he looks very comfortable at this time and not in any distress. Also discussed with at the bedside in detail and explained plan of care to her satisfaction. Procedures Date of Service Date of Service: 04/11/22
--- NOTE | 2022-04-11 10:54 | PHA.MEDREC ---
Pharmacy Consult ? Medication Reconciliation Pharmacy has completed the medication reconciliation. Med rec completed by ARIN Terrazas. Patient took one tablet of ativan 0.5 mg about 2 days however he reported it was an prescription. Dhara Winchester, BeatrizD
[2022-04-11 12:07] LABS: Erythrocyte Sedimentation Rate 33 MM/HR (0-15)
[2022-04-11 13:25] VITALS: BP 116/76; PULSE 77; RESP 14; O2SAT 97
[2022-04-11] MEDS: 0.9 % Sodium Chloride Flush 3 ML SYRINGE IVFLUSH (17:23)
[2022-04-11] MEDS: LORazepam 0.5 MG TABLET PO (17:27)
[2022-04-11 20:00] VITALS: BP 124/58
[2022-04-11 20:01] LABS: Appearance Urine CLEAR; Color Urine YELLOW; Glucose Urine UA NEG (NEG); Leukocyte Esterase Urine NEG (NEG); Nitrite Urine NEG (NEG); Specific Gravity - Urine 1.025 (1.005-1.025); Urine Blood NEG (NEG); Urine Ketones NEG (NEG); Urine Protein NEG (NEG-TRACE)
[2022-04-11 23:30] VITALS: BP 114/75; PULSE 60; RESP 16; TEMP 36.6; O2SAT 97
--- NOTE | 2022-04-12 | ECG_ITS ---
Test Reason : chest pain Blood Pressure : / mmHG Vent. Rate : 079 BPM Atrial Rate : 079 BPM P-R Int : 164 ms QRS Dur : 100 ms QT Int : 380 ms P-R-T Axes : 021 031 014 degrees QTc Int : 435 ms Artifact in tracing Normal sinus rhythm slight Nonspecific ST and T wave abnormality When compared with ECG of 11-APR-2022 08:24, No significant change was found Referred By: Chance Jain Electronically Signed By:INDIO MENENDEZ
[2022-04-12 03:07] VITALS: BP 121/68; PULSE 77; RESP 16; TEMP 36.3; O2SAT 98
[2022-04-12] MEDS: Acetaminophen 325 MG TABLET 650 MG PO (03:38)
[2022-04-12] MEDS: 0.9 % Sodium Chloride Flush 3 ML SYRINGE IVFLUSH ×2 (03:38→08:46)
[2022-04-12] MEDS: LORazepam 0.5 MG TABLET PO ×2 (03:42→09:40)
[2022-04-12 06:25] LABS: Hematocrit 37.1 % (42.0-52.0); Hemoglobin 12.8 g/dl (14.0-18.0); Mean Corpuscular HGB Conc 34.5 g/dl (31.0-36.0); Mean Corpuscular Hemoglobin 32.2 pg (27.0-33.0); Mean Corpuscular Volume 93.2 fL (80.0-98.0); Mean Platelet Volume 8.2 fL (9.4-12.4); Platelet Count 216 X10*3/uL (160-400); Red Blood Count 3.98 X10*6/uL (4.60-5.80); Red Cell Distribution Width 12.4 % (11.0-16.0); White Blood Count 5.9 X10*3/uL (4.8-10.8)
[2022-04-12 06:37] LABS: Anion Gap 9 (12-20); Blood Urea Nitrogen 16 mg/dL (9-16); Calcium 8.4 mg/dL (8.4-10.2); Carbon Dioxide 30 mmol/L (22-29); Chloride 108 mmol/L (96-108); Creatinine Clr Calc Pharmacy 110.5; Estimated Glomerular Filt Rate > 60; Glucose Random 101 mg/dL (60-115); Potassium 3.9 mmol/L (3.3-5.1); Sodium 143 mmol/L (135-145)
[2022-04-12 07:26] VITALS: BP 127/79; PULSE 78; RESP 20; TEMP 36.8; O2SAT 96
--- NOTE | 2022-04-12 08:45 | MHC.CM.PN ---
CM met with Patient and his at bedside and addressed [facility] with him, providing him with the original and placing a copy on the chart. Patient lives in a house with his and 2 Children and he required no services nor DME [employer]. Home/no services is the goal and CM has initiated and will follow for dc planning. PCP is DR. Michael Simms and Patient has received Moderna/vax X2.
[2022-04-12 09:37] VITALS: BMI 32.3
--- NOTE | 2022-04-12 09:41 | P.PNCA_ITS ---
Subjective Subjective Date of Service: 04/12/22 Interval history: He states he still has some sensation in the chest but does not believe it is actually pain. He is not able to describe anything further. Otherwise quite anxious but no other complaints. Review of Systems Review of Systems Yes all other systems are reviewed and are negative Constitutional: Reports as per HPI Eyes: Reports as per HPI Reports as per HPI Cardiovascular: Reports as per HPI, Denies acrocyanosis, Denies cool extremities, Denies chest pain, Denies leg edema, Denies lightheadedness, Denies palpitations and Denies dyspnea Respiratory: Reports as per HPI, Reports no additional respiratory complaints and Denies dyspnea Gastrointestinal: Reports as per HPI and Reports no additional gastrointestinal complaints Genitourinary: Reports no additional male genitourinary complaints and Reports as per HPI Musculoskeletal: Reports no additional musculoskeletal complaints and Reports as per HPI Skin/Breast: Reports system reviewed and no additional complaints, except as docu Reports system reviewed and no additional complaints, except as documented and Reports as per HPI Psychiatric: Reports no additional psychiatric complaints and Reports as per HPI Endocrine: Reports no additional endocrine complaints, Reports as per HPI and Denies palpitations Hematologic/Lymphatic: Reports no additional hematologic/lymphatic complaints and Reports as per HPI Allergic/Immunologic: Reports no additional allergic/immunologic complaints and Reports as per HPI Physical Exam Vital Signs: Last Vital Signs Temp 98.3 F 04/12/22 07:26 Pulse 78 04/12/22 07:26 Resp 20 04/12/22 07:26 BP 127/79 04/12/22 07:26 Pulse Ox 96 04/12/22 07:26 BMI result Body Mass Index 32.3 Const General: comfortable and no acute distress Orientation/consciousness: patient oriented x3 HEENT Other: Unremarkable Head: Yes normal to inspection Neck Neck: Yes normal visual inspection Chest Chest palpation & inspection: normal inspection of the chest Resp Auscultation: clear to auscultation bilaterally Cardio Palpation: normal PMI Heart sounds: S1 normal heart sound present, S2 normal heart sound present, no gallops, no murmurs and no rubs GI Palpation (GI): Soft to palpation Back/Spine/Pelvis Other: unremarkable Skin General skin exam: no rashes or lesions noted Neuro General: patient oriented x3 Extrem General: Yes normal to inspection Psych Mental Status: mental status grossly normal Objective Labs and Meds Result diagrams: 04/12/22 06:03 04/12/22 06:03 Lab results: Laboratory Results - last 24 hr 04/11/22 04/11/22 04/11/22 06:07 06:07 06:12 WBC RBC Hgb Hct MCV MCH MCHC RDW Plt Count MPV Absolute Nucleated RBC Nucleated RBC % (auto) ESR 33 H Cancelled PT INR D-Dimer High Sensitivty Sodium Potassium Chloride Carbon Dioxide Anion Gap BUN Creatinine Estim Creat Clear Calc Estimated GFR Random Glucose Calcium Troponin I High Sens C-Reactive Protein 2.70 H Urine Color Urine Appearance Urine pH Ur Specific [place] Urine Protein Urine Glucose (UA) Urine Ketones Urine Blood Urine Nitrite Ur Leukocyte Esterase Urine Opiates Screen Urine Fentanyl Screen Ur Barbiturates Screen Ur Phencyclidine Scrn Ur Amphetamines Screen U Benzodiazepines Scrn Urine Cocaine Screen U Marijuana (THC) Screen 04/11/22 04/11/22 04/11/22 09:33 09:33 10:02 WBC RBC Hgb Hct MCV MCH MCHC RDW Plt Count MPV Absolute Nucleated RBC Nucleated RBC % (auto) ESR PT 13.2 H INR 1.2 H D-Dimer High Sensitivty < 150 Sodium Potassium Chloride Carbon Dioxide Anion Gap BUN Creatinine Estim Creat Clear Calc Estimated GFR Random Glucose Calcium Troponin I High Sens C-Reactive Protein Urine Color Urine Appearance Urine pH Ur Specific [place] Urine Protein Urine Glucose (UA) Urine Ketones Urine Blood Urine Nitrite Ur Leukocyte Esterase Urine Opiates Screen Not Detected Urine Fentanyl Screen Not Detected Ur Barbiturates Screen Not Detected Ur Phencyclidine Scrn Not Detected Ur Amphetamines Screen Not Detected U Benzodiazepines Scrn Not Detected Urine Cocaine Screen Not Detected U Marijuana (THC) Screen Not Detected 04/11/22 04/11/22 04/12/22 17:04 19:40 06:03 WBC 5.9 RBC 3.98 L Hgb 12.8 L Hct 37.1 L MCV 93.2 MCH 32.2 MCHC 34.5 RDW 12.4 Plt Count 216 MPV 8.2 L Absolute Nucleated RBC 0.000 Nucleated RBC % (auto) 0.0 ESR PT INR D-Dimer High Sensitivty Sodium Potassium Chloride Carbon Dioxide Anion Gap BUN Creatinine Estim Creat Clear Calc Estimated GFR Random Glucose Calcium Troponin I High Sens 1114.0 H* C-Reactive Protein Urine Color YELLOW Urine Appearance CLEAR Urine pH 6.0 Ur Specific [place] 1.025 Urine Protein NEG Urine Glucose (UA) NEG Urine Ketones NEG Urine Blood NEG Urine Nitrite NEG Ur Leukocyte Esterase NEG Urine Opiates Screen Urine Fentanyl Screen Ur Barbiturates Screen Ur Phencyclidine Scrn Ur Amphetamines Screen U Benzodiazepines Scrn Urine Cocaine Screen U Marijuana (THC) Screen 04/12/22 06:03 WBC RBC Hgb Hct MCV MCH MCHC RDW Plt Count MPV Absolute Nucleated RBC Nucleated RBC % (auto) ESR PT INR D-Dimer High Sensitivty Sodium 143 Potassium 3.9 Chloride 108 Carbon Dioxide 30 H Anion Gap 9 L BUN 16 Creatinine 0.81 Estim Creat Clear Calc 110.5 Estimated GFR > 60 Random Glucose 101 Calcium 8.4 Troponin I High Sens C-Reactive Protein Urine Color Urine Appearance Urine pH Ur Specific [place] Urine Protein Urine Glucose (UA) Urine Ketones Urine Blood Urine Nitrite Ur Leukocyte Esterase Urine Opiates Screen Urine Fentanyl Screen Ur Barbiturates Screen Ur Phencyclidine Scrn Ur Amphetamines Screen U Benzodiazepines Scrn Urine Cocaine Screen U Marijuana (THC) Screen Imaging Radiologist's impression: Impressions Pulmonary Perfusion Imaging 04/11/22 10:55 IMPRESSION: Normal radionuclide lung perfusion scan. Progress Note: A&P Assessment and plan (1) Acute viral disease: Status: Acute (2) Chest pain: Status: Acute (3) ACS (acute coronary syndrome): Status: Acute (4) Elevated troponin: Status: Acute Plan Overall, still not clear if it is acute coronary syndrome or myocarditis. His chest pain is very atypical. In fact even denies that is actually pain but rather some odd feeling in the chest. Three sets of troponins are 1141, 1290 and 1114. Cardiac BNP is 42. AST is 42, slightly increased. CRP increased at 2.7. ESR 33. Difficult to still be conclusive one way or another. There are clearly biomarker elevation suggestive of some infection but not clearly identified. EKGs as today were within normal limits. Echocardiogram could not be reported due to technical issues but on review of images in the echo machine no obvious abnormality. We discussed in detail about the findings above. 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 Hence a diagnostic catheterization is very reasonable for definitive diagnosis. If it is indeed within normal limits, then we can call this myocarditis and probably get a cardiac MRI in the future. If any acute lesions detected, we can treat that accordingly. Went over this in detail with patient as well as and they agree. We can keep him on a IV heparin drip. He did get aspirin yesterday. Otherwise, blood pressure seems stable. Will call [facility] for transfer regarding cardiac catheterization. Discussed with Dr. Jain. Time Spent With Patient Time: Total time spent is greater than 50% in coordination of care (as documented) at patient's floor/unit and/or counseling patient: 40min. Progress Note: Quality Stroke Does the patient have a stroke diagnosis?: No Procedures Date of Service Date of Service: 04/12/22
[2022-04-12 10:13] LABS: PTT Heparin Drip 33.2 SEC (53-77.9)
--- NOTE | 2022-04-12 10:51 | PM.DS ---
DS: Providers Provider Date of Service: 04/12/22 Date of admission: 04/11/22 10:14 Primary care physician: Michael Simms MD Consults: 04/11/22 09:51 Consult to Cardiology Routine Consulting Provider: Tamir Rivera Reason for consultation: atypical chest pain, elevated HS trop-I 04/11/22 18:11 Consult to Infectious Diseases Routine Consulting Provider: Soraya Rice Reason for consultation: possible myocarditis DS: Diagnosis Discharge Diagnosis (1) Acute viral disease: Status: Acute (2) Chest pain: Status: Acute (3) ACS (acute coronary syndrome): Status: Acute (4) Elevated troponin: Status: Acute DS: Summary Hospital Course Hospital Course: Chief Complaint: chest pain, cough, shortness of breath This is a 51 yo M with a PMH of SELENA on CPAP, IBS, spinal fusion, deviated nasal septum who presents to the ED with complaints of substernal chest pain. The patient reports that his symptoms began with a cough about 2 weeks ago and slowly progressed to achy/dull chest pain which was intermittent in nature. There was no associated fevers or chills but he did report exposure to family who was sick with likely URI. He reports that there was some associated shortness of breath. He reports that his symptoms were not initially with exertion and typically would last minutes but yesterday while doing house work, he noticed pain with exertion which improved after rest. Hence, the reason for the ED visit. In the ED, his work up revealed an elevated HS trop-I -- 1100 followed by 1200. His EKG showed non-specific changes. He was given IV toradal (minimal improvement in his pain), tylenol and aspirin. His case was d/w cardiology and admission was requested. Hospital course: patient presented with chest pain and found to have troponin I that is signficantly high 1114 to 1290 (nl <3.5 to 35) however there are no ischemic changes on ECG, he also CRP that elevated at 2.70, ESR 33normal metabolic panel, normal BMP, VQ scan is normal. Differential has included possible ACS, pericarditis vs myocarditis..Echo show no wall motion..He has been followed followed by Dr. Rivera and initially there was thought that this could be a viral illness given duration of the symptoms however because he continues to have chest pain some athypical and with typical features and so Dr. Rivera is recommending further eval with cardiac cath. He is started on Heparin drip this morning. Of note covid negative, and tick borne illness panel is pending. 2. Generalized anxiety disorder continue Ativan 3. IBS-- Hyoscyamine c 4. SELENA CPAP at night Time Spent with Patient Time attestation: Total time spent providing and/or coordinating discharge services: Discharge coordination time: Greater than 30 minutes Quality: Safe Use of Opioids Does Pt have an Active Cancer Diagnosis on the Problem List?: No Quality: Stroke Does the patient have a stroke diagnosis?: No Physical Exam Vital Signs: Vital Signs: Last Vital Signs Temp 98.3 F 04/12/22 07:26 Pulse 78 04/12/22 07:26 Resp 20 04/12/22 07:26 BP 127/79 04/12/22 07:26 Pulse Ox 96 04/12/22 07:26 BMI result Body Mass Index 32.3 Const: Other: General: AO X 3, no acute distress Resp: CTA bilateral CVS: S1,S2,RRR GI: +BS, NT, no distention Skin: No rash Neuro: motor grossly intact Psych: appropriate affect DS: Data Data Completed and Pending Labs on day of discharge: Laboratory Results - last 24 hr 04/11/22 04/11/22 04/11/22 06:07 17:04 19:40 WBC RBC Hgb Hct MCV MCH MCHC RDW Plt Count MPV Absolute Nucleated RBC Nucleated RBC % (auto) ESR 33 H aPTT Heparin Protocol Sodium Potassium Chloride Carbon Dioxide Anion Gap BUN Creatinine Estim Creat Clear Calc Estimated GFR Random Glucose Calcium Troponin I High Sens 1114.0 H* Urine Color YELLOW Urine Appearance CLEAR Urine pH 6.0 Ur Specific [place] 1.025 Urine Protein NEG Urine Glucose (UA) NEG Urine Ketones NEG Urine Blood NEG Urine Nitrite NEG Ur Leukocyte Esterase NEG 04/12/22 04/12/22 04/12/22 06:03 06:03 09:51 WBC 5.9 RBC 3.98 L Hgb 12.8 L Hct 37.1 L MCV 93.2 MCH 32.2 MCHC 34.5 RDW 12.4 Plt Count 216 MPV 8.2 L Absolute Nucleated RBC 0.000 Nucleated RBC % (auto) 0.0 ESR aPTT Heparin Protocol 33.2 L Sodium 143 Potassium 3.9 Chloride 108 Carbon Dioxide 30 H Anion Gap 9 L BUN 16 Creatinine 0.81 Estim Creat Clear Calc 110.5 Estimated GFR > 60 Random Glucose 101 Calcium 8.4 Troponin I High Sens Urine Color Urine Appearance Urine pH Ur Specific [place] Urine Protein Urine Glucose (UA) Urine Ketones Urine Blood Urine Nitrite Ur Leukocyte Esterase Discharge Plan Discharge Anticipated Discharge Date/Time: 04/12/22 10:35 Patient Disposition: Xfer Acute Care Hospital Discharge Diagnosis: NSTEMI, Viral illness Referrals: Michael Simms MD [Primary Care Provider] - 1 Week Discharge Medications: New heparin(porcine) in 0.45% NaCl 25,000 unit/250 mL Parenteral Solution 25,000 unit continuous IV infusion .Q0M Qty: 250 0RF Rx Instructions: Follow heparin protocol Continued citalopram 20 mg tablet 1 tab PO DAILY 0RF hyoscyamine sulfate 0.375 mg tablet extended release 12 hr 1 tab PO Q12H 0RF Discharge Orders: Discharge Order (Routine); Ordered 04/12/22 Ordered By: Chance Jain Diet: advance to usual diet Activity on Discharge: As tolerated Stand Alone Forms: Patient Portal Discharge page Care Plan Goals: Full cardiac work up for chest pain Health Concerns: Chest pain and elevated cardiac enzymes Plan of Treatment: Transfer to [facility] for cardiac and further risk stratification, Heparin in the interim Assessment: As above
[2022-04-12] MEDS: Heparin Sodium,Porcine/1/2NS 25,000 UNIT/250 ML IV.SOLN 13.12 UNIT IVCONT (11:21)
[2022-04-12] MEDS: Heparin Sodium,Porcine 5,000 UNIT/ML VIAL 7500 UNIT IVPUSH (11:22)
[2022-04-12 11:30] VITALS: BP 124/78; PULSE 85; RESP 16; TEMP 36.9; O2SAT 96
--- NOTE | 2022-04-12 11:40 | MHC.CM.PN ---
Patient will be transferred to [facility] today.
[2022-04-12 15:28] VITALS: BP 120/72; PULSE 91; RESP 17; TEMP 36.4; O2SAT 95
[2022-04-13 23:07] LABS: A. Phagocytphilium DNA,RT-PCR NOT DETECTED (NOT DETECTED); Babesia Microti DNA, RT-PCR NOT DETECTED (NOT DETECTED); Borrelia Miyamotoi,DNA RT-PCR NOT DETECTED (NOT DETECTED); E.Chaffeensis DNA RT-PCR NOT DETECTED (NOT DETECTED); Lyme(Borrelia ssp)DNA RT-PCR NOT DETECTED (NOT DETECTED); Source-Tick borne disease *BLOOD
== END 2022-04-12 16:21 | disposition short-term general hospital (02) ==
LOC: HO.ED 09:44 → HO.EDOVER 10:43 → HO.IMC 13:36
PROVIDERS: Admitting Provider Family Medicine; Emergency Provider Student in an Organized Health Care Education/Training Program; PCP Internal Medicine; Visit Provider Internal Medicine
DX: R77.8 Other specified abnormalities of plasma proteins (principal); B34.9 Viral infection, unspecified; R07.9 Chest pain, unspecified; I24.9 Acute ischemic heart disease, unspecified; R53.83 Other fatigue; R50.9 Fever, unspecified; R53.1 Weakness; J34.2 Deviated nasal septum; G47.33 Obstructive sleep apnea (adult) (pediatric); K58.9 Irritable bowel syndrome, unspecified; M43.20 Fusion of spine, site unspecified; F41.1 Generalized anxiety disorder; Z20.822 Contact with and (suspected) exposure to COVID-19; Z99.89 Dependence on other enabling machines and devices; Z79.899 Other long term (current) drug therapy
CPT/HCPCS: 36415; 71046; 78580; 80048; 80053; 80307; 81003; 83880; 84484; 85027; 85379; 85610; 85652; 85730; 86140; 87040; 87502; 87635; 87651; 87798; 87801; 93005; 93306; 96361; 96365; 96366; 96375; 99219; 99285; A9540; J1885

== ENCOUNTER 2022-04-21 15:29 | Outpatient (REF) | payer OTHER, SELFPAY ==
[2022-04-21 15:40] LABS: MANUAL DIFF FLAG NO
[2022-04-21 15:51] LABS: Basophils Percent Auto 0.4 % (0-2); Eosinophils Absolute Auto 0.2 X10*3/uL (0.0-0.4); Hematocrit 41.7 % (42.0-52.0); Hemoglobin 14.1 g/dl (14.0-18.0); Imm Gran Abs Auto 0.03 X10*3/uL (0.00-0.03); Imm Gran Pct Auto 0.3 % (0.0-0.4); Lymphocytes Absolute Auto 2.5 X10*3/uL (1.2-4.9); Lymphocytes Percent Auto 26.3 % (20-40); Mean Corpuscular HGB Conc 33.8 g/dl (31.0-36.0); Mean Corpuscular Hemoglobin 32.1 pg (27.0-33.0); Monocytes Absolute Auto 0.9 X10*3/uL (0.1-1.2); Monocytes Percent Auto 9.9 % (2-11); Neutrophils Absolute Auto 5.7 x10*3/uL (2.0-8.3); Neutrophils Percent Auto 61.1 % (45-73); Platelet Count 311 X10*3/uL (160-400); Red Blood Count 4.39 X10*6/uL (4.60-5.80); Red Cell Distribution Width 12.6 % (11.0-16.0); White Blood Count 9.4 X10*3/uL (4.8-10.8)
== END 2022-04-21 15:30 | disposition home or self-care (01) ==
LOC: HO.LNP 15:29
PROVIDERS: Visit Provider Internal Medicine
DX: D64.9 Anemia, unspecified (principal)
CPT/HCPCS: 85025

== ENCOUNTER 2022-06-24 10:55 | Outpatient (REF) | payer OTHER, SELFPAY ==
[2022-06-24 10:59] LABS: MANUAL DIFF FLAG NO
[2022-06-24 11:20] LABS: Appearance Urine Clear; Color Urine Yellow; Glucose Urine UA Negative (Negative); Leukocyte Esterase Urine Negative (Negative); Nitrite Urine Negative (Negative); Urine Blood Negative (Negative); Urine Ketones Negative (Negative); Urine Protein Negative (Neg-Trace)
[2022-06-24 11:21] LABS: Basophils Absolute Auto 0.1 X10*3/uL (0.0-0.2); Basophils Percent Auto 0.7 % (0-2); Eosinophils Absolute Auto 0.2 X10*3/uL (0.0-0.4); Eosinophils Percent Auto 3.5 % (0-4); Hematocrit 42.4 % (42.0-52.0); Hemoglobin 14.6 g/dl (14.0-18.0); Imm Gran Abs Auto 0.01 X10*3/uL (0.00-0.03); Imm Gran Pct Auto 0.1 % (0.0-0.4); Lymphocytes Absolute Auto 2.3 X10*3/uL (1.2-4.9); Lymphocytes Percent Auto 33.7 % (20-40); Mean Corpuscular HGB Conc 34.4 g/dl (31.0-36.0); Mean Corpuscular Hemoglobin 32.2 pg (27.0-33.0); Mean Corpuscular Volume 93.6 fL (80.0-98.0); Mean Platelet Volume 9.3 fL (9.4-12.4); Monocytes Absolute Auto 0.8 X10*3/uL (0.1-1.2); Monocytes Percent Auto 11.1 % (2-11); Neutrophils Absolute Auto 3.5 x10*3/uL (2.0-8.3); Neutrophils Percent Auto 50.9 % (45-73); Platelet Count 230 X10*3/uL (160-400); Red Blood Count 4.53 X10*6/uL (4.60-5.80); Red Cell Distribution Width 12.4 % (11.0-16.0); White Blood Count 6.9 X10*3/uL (4.8-10.8)
[2022-06-24 11:34] LABS: Alanine Aminotransferase 28 U/L (0-40); Albumin Level 4.1 g/dL (3.5-5.0); Anion Gap 12 (12-20); Aspartate Amino Transferase 25 U/L (5-37); Bilirubin Total 0.6 mg/dL (0.0-1.0); Blood Urea Nitrogen 17 mg/dL (9-16); Calcium 8.8 mg/dL (8.4-10.2); Carbon Dioxide 28 mmol/L (22-29); Chloride 103 mmol/L (96-108); Cholesterol 171 mg/dL; Estimated Glomerular Filt Rate > 60; Glucose Fasting 96 mg/dL (60-99); Sodium 139 mmol/L (135-145); Total Protein 6.9 g/dL (6.5-8.0); Triglycerides 162 mg/dL
[2022-06-24 11:35] LABS: Alkaline Phosphatase 74 U/L (39-117); HDL Cholesterol 39 mg/dL; LDL Cholesterol Calculated 100 mg/dl
[2022-06-24 11:48] LABS: RBC Urine 0-2 /HPF (0-2); Squamous Epithelial Cell Urine 0-2 /HPF (0-2); WBC Urine 0-5 /HPF (0-5)
[2022-06-24 11:49] LABS: Bacteria Urine None Seen (None Seen); Hyaline Casts Urine 0-2 /LPF (0-2)
[2022-06-24 12:08] LABS: PSA,Total (Free>4and<10) 4.32 ng/mL (0.00-4.00)
[2022-06-27 09:07] LABS: Free Prostate Spec Ag 0.8 ng/mL; Percent Free Prostate Spec Ag 14 % (calc) (>25); Prostate Specific Ag Total 5.9 ng/mL (< OR = 4.0)
== END 2022-06-24 10:56 | disposition home or self-care (01) ==
LOC: HO.LNP 10:55
PROVIDERS: Visit Provider Internal Medicine
DX: Z00.00 Encounter for general adult medical examination without abnormal findings (principal); Z12.5 Encounter for screening for malignant neoplasm of prostate; E78.6 Lipoprotein deficiency; R97.20 Elevated prostate specific antigen [PSA]
CPT/HCPCS: 80053; 80061; 81001; 84153; 84154; 85025

== ENCOUNTER → 2022-06-29 07:24 | Outpatient (REF) | payer OTHER, SELFPAY ==
--- NOTE | 2022-06-29 07:26 | HM_ITS ---
* Total monitoring time 6 days and 23 hours. * Underlying rhythm is sinus. Average rate 72/Min. Range 45 to 147/Min. * No atrial fibrillation or flutter or AV blocks or pauses. * Rare supraventricular ectopy with minimal burden. * Rare ventricular ectopy with minimal burden. * No patient events. MTDD
== END ==
LOC: HO.CARD 07:24
PROVIDERS: Visit Provider Internal Medicine Cardiovascular Disease
DX: I40.0 Infective myocarditis (principal)
CPT/HCPCS: 93242

== ENCOUNTER 2022-07-10 07:14 | Emergency (ER) | payer OTHER, SELFPAY ==
--- NOTE | ~2022-07-10 | XR_ITS ---
EXAMINATION: XR CHEST CLINICAL INFORMATION: Chest pain COMPARISON: Previous chest x-ray April 2022 TECHNIQUE: Frontal view of the chest was obtained. FINDINGS: The cardiac and mediastinal contours are stable. The lungs are clear. There is no pleural effusion or pneumothorax. There are postsurgical changes to the cervical spine. XR/XR chest 1V IMPRESSION: No evidence for acute disease in the chest.
--- NOTE | 2022-07-10 07:18 | ECG_ITS ---
Test Reason : CP Blood Pressure : / mmHG Vent. Rate : 074 BPM Atrial Rate : 074 BPM P-R Int : 152 ms QRS Dur : 098 ms QT Int : 382 ms P-R-T Axes : 015 029 003 degrees QTc Int : 424 ms Normal sinus rhythm Normal ECG When compared with ECG of 12-APR-2022 10:01, ST no longer depressed in Anterior leads Referred By: Generic ED Physician Electronically Signed By:MONICA DIOP
[2022-07-10 07:33] VITALS: BP 112/88; PULSE 72; RESP 20; O2SAT 98; BMI 32.3
[2022-07-10] MEDS: LORazepam 1 MG TABLET PO (07:44)
[2022-07-10 08:04] VITALS: PULSE 64
--- NOTE | 2022-07-10 08:05 | ED_ITS ---
HPI - Chest Pain General Chief Complaint: Chest Pain Stated Complaint: heart problems Time Seen by Provider: 07/10/22 07:40 Source: patient and family (partner) Mode of arrival: ambulatory Limitations: no limitations History of Present Illness HPI narrative: Patient is a 51 year old male presenting to the emergency department today with left sided chest pain. Patient states that he was seen here in April for Myocarditis and was transferred to [facility] where he had a cath that showed no vessel disease. Patient states that starting yesterday, he began to have some slight left sided chest pain and it has continued into today. Patient states that he accidentally continued taking his full dose of metoprolol instead of his half dose and ran out early, so in total, he was off his metoprolol for a couple days but he is now back on it. Patient states that the pain is somewhat relieved when he puts pressure on his chest. Patient states that he does have anxiety and is on anti-anxiety medication. Patient denies any dizziness, lightheadedness, abdominal pain, nausea, vomiting, fever, chills, blurry vision, double vision, loss of vision, difficulty breathing, shortness of breath, back pain, night sw eats, pain with urination, increased urinary frequency, increased urinary urgency, blood in his urine or stool, syncope or a near syncopal episode, recent trauma or falls, bowel incontinence, bladder incontinence, bowel retention, bladder retention, or any other complaints at this time. MD complaint: chest pain Pertinent past history: other (myocarditis) Onset (ago): day(s) (1) Prior episodes: Yes Pain location: left chest Pain radiation: none Severity: mild Pain scale (0-10): 3 Quality: sharp Relieving factors: other (pushing down on left chest) Exacerbating factors: nothing Treatment prior to arrival: none Risk Factors Coronary artery disease risk factors: none Thoracic aortic dissection risk factors: none Related Data Home Medications Medication Instructions Recorded Confirmed citalopram 20 mg tablet 20 mg PO DAILY 05/19/22 05/19/22 hyoscyamine sulfate 0.375 mg 0.375 mg PO Q12H 05/19/22 05/19/22 tablet,extended release,12 hr Previous Rx's Medication Instructions Recorded metoprolol succinate 25 mg 12.5 mg PO DAILY #90 tabs 07/07/22 tablet,extended release 24 hr Allergies Allergy/AdvReac Type Severity Reaction Status Date / Time No Known Allergies Allergy Verified 05/19/22 12:36 Review of Systems Constitutional: Constitutional: Reports no additional constitutional c omplaints, Denies chills, Denies fever(s) and Denies night sweats Eyes: Eyes: Reports no additional eye complaints, Denies blurry vision, Denies change in vision, Denies diplopia, Denies eye discharge, Denies loss of vision and Denies eye pain ENT: Denies dizziness Cardiovascular: Cardiovascular: Reports no additional cardiovascular complaints, Reports chest pain, Denies lightheadedness, Denies Loss of Consciousness and Denies dyspnea Respiratory: Respiratory: Reports no additional respiratory complaints and Denies dyspnea Gastrointestinal: Gastrointestinal: Reports no additional gastrointestinal complaints, Denies abdominal pain, Denies melena, Denies hematochezia, Denies change in bowel habits and Denies change in stool character Genitourinary: Genitourinary: Reports no additional male genitourinary complaints, Denies hematuria, Denies oliguria, Denies difficulty urinating, Denies dysuria, Denies urinary frequency, Denies urinary hesitancy, Denies urinary incontinence and Denies urinary urgency Musculoskeletal: Musculoskeletal: Reports no additional musculoskeletal complaints, Denies numbness and Denies tingling Neurologic: Denies dizziness, Denies loss of vision, Denies numbness and Denies tingling Psychiatric: Psychiatric: Reports no additional psychiatric complaints and Reports anxiety Endocrine: Endocrine: Reports no additional endocrine complaints Hematologic/Lymphatic: Hematologic/Lymphatic: Reports no additional hematolog ic/lymphatic complaints Allergic/Immunologic: Allergic/Immunologic: Reports no additional allergic/immunologic complaints [facility] Past Medical History Attestation statement: The following information was validated with the patient. 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 Physical Exam Vital Signs: Vital Signs: Last Vital Signs Temp 98.6 F 07/10/22 09:34 Pulse 70 07/10/22 09:34 Resp 14 07/10/22 09:34 BP 116/75 07/10/22 09:34 Pulse Ox 98 07/10/22 07:33 O2 Del Method 07/10/22 09:34 BMI result Body Mass Index 32.3 Const: General: cooperative, no acute distress, alert and awake Nutritional Appearance: well nourished Orientation/consciousness: patient oriented x3 Limitations: no limitations HEENT: Head: Yes normal to inspection and Yes atraumatic Ears: hearing grossly normal bilaterally and external ears normal General nose exam: Normal external nose present, no nasal discharge noted and no epistaxis Face and sinus: Yes normal facial exam, No abrasion and No laceration Mouth: Normal oral and palatal mucosa present, no drooling and no muffled voice Eyes: General: appearance normal, both eyes and all related structures Periorbital: periorbital findings normal Eyelids: Yes eyelids normal Conjunctivae: conjunctivae normal Pupils: Equal, round and reactive pupils present EOM: EOMs intact bilaterally Neck: Neck: Yes normal visual inspection, Yes full ROM and Yes no lymphadenopathy Chest: Chest palpation & inspection: normal inspection of the chest Resp: Effort & Inspection: normal respiratory effort and able to speak in complete sentences Auscultation: clear to auscultation bilaterally Cardio: Rate: regular rate Rhythm: regular rhythm GI: Inspection: Yes normal to inspection Neuro: General: patient oriented x3 and moves all extremities Cranial nerves: Yes Equal, round and reactive pupils present Cognition (Neuro): normal cognition Motor exam (neuro): 5/5 motor strength present throughout Sensory Exam: Normal double simultaneous stimulation for sensation Coordination: [id number] test normal Extrem: General: Yes normal to inspection, Yes full ROM and Yes capillary refill normal Psych: Appearance: grossly normal Mental Status: mental status grossly normal Affect: normal affect Attitude: cooperative Thought process: Normal thought process present Thought content: Normal thought content present Insight: Good insight present (Psych) MDM - Chest Pain MDM Narrative Medical decision making narrative: Patient is a 51 year old male presenting to the emergency department today with left sided chest pain. Patient's physical exam was unremarkable. Patient's blood work was unremarkable. Patient's EKG was unremarkable. Patient's chest x-ray showed no acute process. I explained my physical exam findings as well as all test results to the patient and the patient's partner. I answered all questions asked by the patient and the patient's partner. Patient received Ativan which he stated helped his symptoms significantly. I stressed the importance of the patient taking his medication as prescribed. I stressed the importance of the patient following up with his primary care provider and metal window screen assembler. I stressed the importance of the patient returning to the emergency department immediately if his symptoms were to worsen or if he were to develop any dizziness, shortness of breath, difficulty breathing, chest pain, blurry vision, loss of vision, nausea, vomiting, abdominal pain, fever, chills, back pain, or any other complaints. Patient and the patient's partner verbalized agreement and understanding with this treatment plan and discharge. Differential Diagnosis Differential diagnosis: Likely atypical chest pain and costochondritis Medical Records Data Attestation: I reviewed the patient's medical records. Lab Data Attestation: I reviewed the patient's lab results. Result diagrams: 07/10/22 08:15 07/10/22 08:15 Labs: Lab Results 07/10/22 07/10/22 07/10/22 Range/Units 08:15 08:15 08:15 WBC 9.0 (4.8-10.8) X10*3/uL RBC 4.68 (4.60-5.80) X10*6/uL Hgb 15.0 (14.0-18.0) g/dl Hct 42.7 (42.0-52.0) % MCV 91.2 (80.0-98.0) fL MCH 32.1 (27.0-33.0) pg MCHC 35.1 (31.0-36.0) g/dl RDW 12.2 (11.0-16.0) % Plt Count 223 (160-400) X10*3/uL MPV 8.6 L (9.4-12.4) fL Immature Gran % (Auto) 0.4 (0.0-0.4) % Neut % (Auto) 73.4 H (45-73) % Lymph % (Auto) 17.9 L (20-40) % Atlantic % (Auto) 7.9 (2-11) % Eos % (Auto) 0.1 (0-4) % Baso % (Auto) 0.3 (0-2) % Lymph # (Auto) 1.6 (1.2-4.9) X10*3/uL Atlantic # (Auto) 0.7 (0.1-1.2) X10*3/uL Eos # (Auto) 0.0 (0.0-0.4) X10*3/uL Baso # (Auto) 0.0 (0.0-0.2) X10*3/uL Abs Immat Gran (auto) 0.04 H (0.00-0.03) X10*3/uL Absolute Neuts (auto) 6.6 (2.0-8.3) x10*3/uL Absolute Nucleated RBC 0.000 (0.0-0.012) X10*3/uL Nucleated RBC % (auto) 0.0 (0.0-0.2) /100WBC PT 13.3 H (10.0-13.1) SEC INR 1.2 H (0.9-1.1) Sodium 142 (135-145) mmol/L Potassium 3.6 (3.3-5.1) mmol/L Chloride 107 (96-108) mmol/L Carbon Dioxide 24 (22-29) mmol/L Anion Gap 15 (12-20) BUN 13 (9-16) mg/dL Creatinine 0.87 (0.5-1.4) mg/dL Estim Creat Clear Calc 103.5 Estimated GFR > 60 Random Glucose 101 (60-115) mg/dL Calcium 8.9 (8.4-10.2) mg/dL Magnesium 2.1 (1.6-2.6) mg/dL Total Bilirubin 0.8 (0.0-1.0) mg/dL Direct Bilirubin 0.3 (0.0-0.5) mg/dL AST 23 (5-37) U/L ALT 25 (0-40) U/L Alkaline Phosphatase 65 (39-117) U/L Troponin I High Sens (<3.5-35.0) ng/L Total Protein 7.0 (6.5-8.0) g/dL Albumin 4.2 (3.5-5.0) g/dL Ethyl Alcohol < 10 mg/dL COVID-19 ([facility]) (Negative) COVID-19 Clin Com 07/10/22 07/10/22 Range/Units 08:15 08:15 WBC (4.8-10.8) X10*3/uL RBC (4.60-5.80) X10*6/uL Hgb (14.0-18.0) g/dl Hct (42.0-52.0) % MCV (80.0-98.0) fL MCH (27.0-33.0) pg MCHC (31.0-36.0) g/dl RDW (11.0-16.0) % Plt Count (160-400) X10*3/uL MPV (9.4-12.4) fL Immature Gran % (Auto) (0.0-0.4) % Neut % (Auto) (45-73) % Lymph % (Auto) (20-40) % Atlantic % (Auto) (2-11) % Eos % (Auto) (0-4) % Baso % (Auto) (0-2) % Lymph # (Auto) (1.2-4.9) X10*3/uL Atlantic # (Auto) (0.1-1.2) X10*3/uL Eos # (Auto) (0.0-0.4) X10*3/uL Baso # (Auto) (0.0-0.2) X10*3/uL Abs Immat Gran (auto) (0.00-0.03) X10*3/uL Absolute Neuts (auto) (2.0-8.3) x10*3/uL Absolute Nucleated RBC (0.0-0.012) X10*3/uL Nucleated RBC % (auto) (0.0-0.2) /100WBC PT (10.0-13.1) SEC INR (0.9-1.1) Sodium (135-145) mmol/L Potassium (3.3-5.1) mmol/L Chloride (96-108) mmol/L Carbon Dioxide (22-29) mmol/L Anion Gap (12-20) BUN (9-16) mg/dL Creatinine (0.5-1.4) mg/dL Estim Creat Clear Calc Estimated GFR Random Glucose (60-115) mg/dL Calcium (8.4-10.2) mg/dL Magnesium (1.6-2.6) mg/dL Total Bilirubin (0.0-1.0) mg/dL Direct Bilirubin (0.0-0.5) mg/dL AST (5-37) U/L ALT (0-40) U/L Alkaline Phosphatase (39-117) U/L Troponin I High Sens < 3.5 D (<3.5-35.0) ng/L Total Protein (6.5-8.0) g/dL Albumin (3.5-5.0) g/dL Ethyl Alcohol mg/dL COVID-19 ([facility]) Negative (Negative) COVID-19 Clin Com See Note Imaging Data Chest x-ray: Attestation: I personally reviewed and interpreted this imaging study as follows: My impression: No acute process. Radiologist's impression: EXAMINATION: XR CHEST CLINICAL INFORMATION: Chest pain COMPARISON: Previous chest x-ray April 2022 TECHNIQUE: Frontal view of the chest was obtained. FINDINGS: The cardiac and mediastinal contours are stable. The lungs are clear. There is no pleural effusion or pneumothorax. There are postsurgical changes to the cervical spine. XR/XR chest 1V IMPRESSION: No evidence for acute disease in the chest. Dictated By: Rafaela Fields MD Signed By: Electronically signed by Rafaela Fields MD 07/10/22 0901 ECG Data ECG #1: Attestation: I personally reviewed and interpreted this ECG as follows: ECG interpretation date: 07/10/22 ECG interpretation time: : Prior ECG tracings: available for review Interpretation: Vent. Rate: 074 BPM ? ? Atrial Rate: 074 BPM P-R Int: 152 ms? QRS Dur: 098 ms QT Int: 382 ms ? ? ? P-R-T Axes: 015 029 003 degrees QTc Int: 424 ms ? Normal sinus rhythm Normal ECG When compared with ECG of 12-APR-2022 10:01, ST no longer depressed in Anterior leads DD/ 0724 Discharge Plan Discharge Clinical Impression: Chest pain Patient Disposition: Home, Self-Care Instructions: Chest Wall Pain (ED) Additional Instructions: Follow up with your primary care provider and your metal window screen assembler. Return to the emergency department immediately if your symptoms worsen or if you develop any dizziness, shortness of breath, difficulty breathing, chest pain, blurry vision, loss of vision, nausea, vomiting, abdominal pain, fever, chills, back pain, or any other complaints. Prescriptions: No Action metoprolol succinate 25 mg tablet extended release 24 hr 12.5 mg PO DAILY Qty: 90 3RF citalopram 20 mg tablet 20 mg PO DAILY hyoscyamine sulfate 0.375 mg tablet extended release 12 hr 0.375 mg PO Q12H Referrals: Mariano Simms MD [Primary Care Provider] - Interventions: ED Discharge Assessment Last Done: 07/10/22 09:46 Discharge Date/Time: 07/10/22 09:47 Print Language: Eritrean
--- NOTE | 2022-07-10 08:08 | PC.NURSE ---
pt a/o x 4, no sob/carolina noted skin pink warm dry speaks in full sentences. lungs - cta, abd soft n/t, +4 quads. no edema noted.
[2022-07-10 08:21] LABS: MANUAL DIFF FLAG NO
[2022-07-10 08:27] LABS: INTERNATIONAL NORM RATIO 1.2 (0.9-1.1); Prothrombin Time 13.3 SEC (10.0-13.1)
[2022-07-10 08:33] LABS: Basophils Percent Auto 0.3 % (0-2); Eosinophils Percent Auto 0.1 % (0-4); Hematocrit 42.7 % (42.0-52.0); Imm Gran Abs Auto 0.04 X10*3/uL (0.00-0.03); Imm Gran Pct Auto 0.4 % (0.0-0.4); Lymphocytes Absolute Auto 1.6 X10*3/uL (1.2-4.9); Lymphocytes Percent Auto 17.9 % (20-40); Mean Corpuscular HGB Conc 35.1 g/dl (31.0-36.0); Mean Corpuscular Hemoglobin 32.1 pg (27.0-33.0); Mean Corpuscular Volume 91.2 fL (80.0-98.0); Mean Platelet Volume 8.6 fL (9.4-12.4); Monocytes Absolute Auto 0.7 X10*3/uL (0.1-1.2); Monocytes Percent Auto 7.9 % (2-11); Neutrophils Absolute Auto 6.6 x10*3/uL (2.0-8.3); Neutrophils Percent Auto 73.4 % (45-73); Platelet Count 223 X10*3/uL (160-400); Red Blood Count 4.68 X10*6/uL (4.60-5.80); Red Cell Distribution Width 12.2 % (11.0-16.0)
[2022-07-10 08:37] LABS: COVID-19 Test Negative (Negative); IDNOW Serial# 08D9AD1C
[2022-07-10 08:38] LABS: Alanine Aminotransferase 25 U/L (0-40); Albumin Level 4.2 g/dL (3.5-5.0); Alkaline Phosphatase 65 U/L (39-117); Anion Gap 15 (12-20); Aspartate Amino Transferase 23 U/L (5-37); Bilirubin Direct 0.3 mg/dL (0.0-0.5); Bilirubin Total 0.8 mg/dL (0.0-1.0); Blood Urea Nitrogen 13 mg/dL (9-16); Calcium 8.9 mg/dL (8.4-10.2); Carbon Dioxide 24 mmol/L (22-29); Chloride 107 mmol/L (96-108); Creatinine Clr Calc Pharmacy 103.5; Estimated Glomerular Filt Rate > 60; Ethanol < 10 mg/dL; Glucose Random 101 mg/dL (60-115); Magnesium 2.1 mg/dL (1.6-2.6); Potassium 3.6 mmol/L (3.3-5.1); Sodium 142 mmol/L (135-145)
[2022-07-10 08:45] LABS: Troponin-I High Sensitivity < 3.5 ng/L (<3.5-35.0)
[2022-07-10 09:34] VITALS: BP 116/75; PULSE 70; RESP 14; TEMP 37
== END 2022-07-10 09:47 | disposition home or self-care (01) ==
PROVIDERS: Emergency Provider Emergency Medicine; PCP Internal Medicine
DX: R07.89 Other chest pain (principal); M94.0 Chondrocostal junction syndrome [Tietze]; Z20.822 Contact with and (suspected) exposure to COVID-19; Z79.899 Other long term (current) drug therapy
CPT/HCPCS: 71045; 80048; 80076; 82077; 83735; 84484; 85025; 85610; 87635; 93005; 99284; 99285

== ENCOUNTER → 2023-01-09 09:12 | Outpatient (BNVA) | payer OTHER, SELFPAY | PROVIDERS: PCP Internal Medicine; Referring Provider Internal Medicine; Visit Provider Internal Medicine Cardiovascular Disease | DX: Z13.89 Encounter for screening for other disorder (principal) ==

== ENCOUNTER → 2023-01-17 08:50 | Outpatient (REF) | payer OTHER, SELFPAY ==
--- NOTE | 2023-01-17 08:52 | CA_ITS ---
Acquisition Time: 2023-01-17 09:13:25 Total Exercise Time: 00:08:00 Test Indications: CHEST PAIN Medications: METOPROLOL Protocol: WALLACE Max HR: 150 BPM 90% of Pred: 166 BPM Max BP: 166/070 mmHG Max Work Load: 10.1 METS Exercise stress test 8 min with Wallace protocol achieiving 90% MPHR without anginal symptoms, with one PVC, with normotensive response to exercise, without EKG changes meeting criteria for ischemia. With exercise non-specific ST change noted in recovery. Test reviewed with Dr. Kenney. Referred By: Michele Kenney Overread By: PEARL PAIGE
== END ==
LOC: HO.CARD 08:50
PROVIDERS: PCP Internal Medicine; Visit Provider Internal Medicine Cardiovascular Disease
DX: R07.9 Chest pain, unspecified (principal)
CPT/HCPCS: 93017

== ENCOUNTER 2023-06-29 07:15 | Outpatient (REF) | payer OTHER, SELFPAY ==
[2023-06-29 12:21] LABS: MANUAL DIFF FLAG NO
[2023-06-29 13:50] LABS: Basophils Percent Auto 0.7 % (0-2); Eosinophils Absolute Auto 0.2 X10*3/uL (0.0-0.4); Eosinophils Percent Auto 3.5 % (0-4); Hematocrit 42.7 % (42.0-52.0); Hemoglobin 14.7 g/dl (14.0-18.0); Imm Gran Abs Auto 0.01 X10*3/uL (0.00-0.03); Imm Gran Pct Auto 0.2 % (0.0-0.4); Mean Corpuscular HGB Conc 34.4 g/dl (31.0-36.0); Mean Corpuscular Hemoglobin 32.9 pg (27.0-33.0); Mean Corpuscular Volume 95.5 fL (80.0-98.0); Mean Platelet Volume 9.4 fL (9.4-12.4); Monocytes Absolute Auto 0.6 X10*3/uL (0.1-1.2); Monocytes Percent Auto 10.8 % (2-11); Neutrophils Absolute Auto 2.9 x10*3/uL (2.0-8.3); Neutrophils Percent Auto 50.8 % (45-73); Platelet Count 234 X10*3/uL (160-400); Red Blood Count 4.47 X10*6/uL (4.60-5.80); Red Cell Distribution Width 12.2 % (11.0-16.0); White Blood Count 5.7 X10*3/uL (4.8-10.8)
[2023-06-29 14:03] LABS: Appearance Urine Clear; Color Urine Dark Yellow; Glucose Urine UA Negative (Negative); Leukocyte Esterase Urine Negative (Negative); Nitrite Urine Negative (Negative); PH 5.5 (5.0-9.0); Specific Gravity - Urine 1.025 (1.005-1.025); Urine Blood Negative (Negative); Urine Ketones Negative (Negative); Urine Protein Trace mg/dL (Neg-Trace)
[2023-06-29 14:19] LABS: Alanine Aminotransferase 32 U/L (0-40); Albumin Level 4.1 g/dL (3.5-5.0); Alkaline Phosphatase 67 U/L (39-117); Anion Gap 10 (12-20); Aspartate Amino Transferase 28 U/L (5-37); Bilirubin Total 0.5 mg/dL (0.0-1.0); Blood Urea Nitrogen 14 mg/dL (9-16); Calcium 9.3 mg/dL (8.4-10.2); Carbon Dioxide 26 mmol/L (22-29); Chloride 106 mmol/L (96-108); Cholesterol 159 mg/dL (<200); Estimated Glomerular Filt Rate > 60; Glucose Fasting 93 mg/dL (60-99); HDL Cholesterol 39 mg/dL (>40); LDL Cholesterol Calculated 96 mg/dL (<100); Potassium 3.8 mmol/L (3.3-5.1); Sodium 138 mmol/L (135-145); Total Protein 7.1 g/dL (6.5-8.0); Triglycerides 122 mg/dL (<150)
[2023-06-29 14:24] LABS: Bacteria Urine None Seen (None Seen); RBC Urine 0-2 /HPF (0-2); Squamous Epithelial Cell Urine 0-2 /HPF (0-2); WBC Urine 0-5 /HPF (0-5)
[2023-06-29 17:07] LABS: Prostate Specific Antigen 2.63 ng/mL (<0.05-4.0)
== END 2023-06-29 07:16 | disposition home or self-care (01) ==
LOC: HO.LNP 07:15
PROVIDERS: Visit Provider Internal Medicine
DX: Z00.00 Encounter for general adult medical examination without abnormal findings (principal); E78.6 Lipoprotein deficiency; R97.20 Elevated prostate specific antigen [PSA]; Z12.5 Encounter for screening for malignant neoplasm of prostate
CPT/HCPCS: 80053; 80061; 81001; 84153; 85025

== ENCOUNTER 2023-07-12 13:34 | Outpatient (AMB) | payer OTHER, SELFPAY ==
--- NOTE | 2023-07-12 13:47 | A.OFFVIS_ITS ---
Intake Vital Signs 07/12/23 13:48 Height 5 ft 6 in Weight 211 lb 3.245 oz BMI 34.1 BP 104/78 Blood Pressure Location Lt brachial Position Sitting Pulse 66 Pulse Source Monitor Intake Visit Reasons: 6 mth f/u after ETT Intake Note: 6 month follow up with EKG. Parts Interpreter Required: No Accompanied by: Self / Same As Patient Allergies No Known Allergies Allergy (Verified 07/12/23 13:50) Medication List - Last Reconciled 07/12/23 by Michele Kenney MD citalopram 20 mg PO DAILY hyoscyamine sulfate ER 0.375 mg PO Q12H metoprolol succinate ER (Toprol XL) 25 mg PO DAILY HPI HPI Comments History of Present Illness Details 52-year-old gentleman with history of viral myocarditis. He is here for follow-up. He has been doing well. Off and on his notice atypical pressure of feeling on the left upper chest which happens randomly. No exertional symptoms. He underwent cardiac catheterization when he was transferred from [place] with myocarditis and he did not have any significant coronary disease. He was previously started on metoprolol succinate but he stopped taking that. No palpitations. No dizziness or syncope. He has not been exercising in and he has gained some weight and feels fatigued. 07/12/23: He returns for follow-up. On previous visit he was asking about exercise and we did exercise stress testing on him where he was able to achieve 10.1 metabolic equivalents without any significant EKG changes. He had 1 premature ventricular complexes during exercise. He was advised to start exercising regularly. He returns and has not been doing well. No chest discomfort or shortness of breath. He has been exercising 2 times a week without any issues. Taking medications regularly and is currently on Toprol-XL 25 mg once a day. 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 Review of Systems Const Denies weakness ENT Denies dizziness Card Denies chest pain, Denies chest pain with activity, Denies syncope, Denies rapid heart rate, Denies pedal edema, Denies edema, Denies leg edema, Denies lightheadedness, Denies palpitations, Denies dyspnea, Denies dyspnea on exertion and Denies orthopnea Resp Denies cough, Denies dyspnea and Denies dyspnea on exertion GI Denies hematochezia and Denies change in stool character Musc Denies abnormal gait, Denies muscle cramps, Denies muscle weakness, Denies numbness, Denies radiating pain into limb and Denies tingling Neuro Denies abnormal gait, Denies dizziness, Denies syncope, Denies numbness, Denies tingling and Denies weakness Endo Denies palpitations Physical Exam Vital Signs: Last Vital Signs Pulse 66 07/12/23 13:48 BP 104/78 07/12/23 13:48 BMI result Body Mass Index 34.1 GENERAL APPEARANCE: in no acute distress, pleasant. NECK: no carotid bruit, no jugular venous distention. SKIN: no suspicious lesions, warm and dry. HEART: no murmurs, regular rate and rhythm. LUNGS: clear to auscultation bilaterally. ABDOMEN: soft, nontender. EXTREMITIES: no edema. Palms are sweaty. PERIPHERAL PULSES: equal. NEUROLOGIC: No gross deficits, AAO X 3 Office Procedures EKG Details: Sinus rhythm 66 beats per minute nonspecific ST changes, QTC 406 milliseconds. 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 He has history of viral myocarditis. He has been doing well. He is currently taking Toprol-XL 25 mg daily. He had no chest pain or shortness of breath no syncope or palpitations. Previous stress testing was normal. I have advised him to continue taking Toprol-XL for now. We will see him back in 1 year. Thank you for allowing me to participate in the care of your patient. Please feel free to contact me if you have any questions. 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
[2023-07-12 13:48] VITALS: BP 104/78; PULSE 66; BMI 34.1
== END 2023-07-12 14:09 | disposition home or self-care (01) ==
PROVIDERS: PCP Internal Medicine; Referring Provider Internal Medicine; Visit Provider Internal Medicine Cardiovascular Disease
DX: I40.0 Infective myocarditis (principal)
CPT/HCPCS: 93010; 99213

== ENCOUNTER → 2023-07-12 13:34 | Outpatient (BNVA) | payer OTHER, SELFPAY | PROVIDERS: PCP Internal Medicine; Referring Provider Internal Medicine; Visit Provider Internal Medicine Cardiovascular Disease | DX: I40.0 Infective myocarditis (principal); Z79.899 Other long term (current) drug therapy | CPT/HCPCS: 93005 ==

== ENCOUNTER → 2024-03-19 13:19 | Outpatient (BNVA) | payer OTHER, SELFPAY | PROVIDERS: PCP Internal Medicine; Visit Provider Physician Assistant Medical | DX: S29.011A Strain of muscle and tendon of front wall of thorax, initial encounter (principal); S83.91XA Sprain of unspecified site of right knee, initial encounter; X58.XXXA Exposure to other specified factors, initial encounter | CPT/HCPCS: 71101; 73564; 99203 ==

== ENCOUNTER → 2024-03-26 09:28 | Outpatient (BNVA) | payer OTHER, SELFPAY | PROVIDERS: PCP Internal Medicine; Visit Provider Physician Assistant Medical | DX: S29.011D Strain of muscle and tendon of front wall of thorax, subsequent encounter (principal); S83.91XD Sprain of unspecified site of right knee, subsequent encounter; X58.XXXD Exposure to other specified factors, subsequent encounter | CPT/HCPCS: 29515; 99213 ==

== ENCOUNTER → 2024-04-16 09:23 | Outpatient (BNVA) | payer OTHER, SELFPAY | PROVIDERS: PCP Internal Medicine; Visit Provider Physician Assistant Medical | DX: S29.011D Strain of muscle and tendon of front wall of thorax, subsequent encounter (principal); S83.91XD Sprain of unspecified site of right knee, subsequent encounter; Y35.811D Legal intervention involving manhandling, law enforcement official injured, subsequent encounter | CPT/HCPCS: 99213 ==

== ENCOUNTER 2024-07-04 10:41 | Outpatient (REF) | payer OTHER, SELFPAY ==
[2024-07-04 10:47] LABS: MANUAL DIFF FLAG NO
[2024-07-04 11:04] LABS: Appearance Urine Clear; Basophils Absolute Auto 0.1 X10*3/uL (0.0-0.2); Basophils Percent Auto 0.7 % (0-2); Color Urine Yellow; Eosinophils Absolute Auto 0.2 X10*3/uL (0.0-0.4); Eosinophils Percent Auto 2.7 % (0-4); Glucose Urine UA Negative (Negative); Hematocrit 44.7 % (42.0-52.0); Hemoglobin 15.2 g/dl (14.0-18.0); Imm Gran Abs Auto 0.01 X10*3/uL (0.00-0.03); Imm Gran Pct Auto 0.1 % (0.0-0.4); Leukocyte Esterase Urine Trace (Negative); Lymphocytes Absolute Auto 2.2 X10*3/uL (1.2-4.9); Lymphocytes Percent Auto 26.7 % (20-40); Mean Corpuscular Hemoglobin 32.2 pg (27.0-33.0); Mean Corpuscular Volume 94.7 fL (80.0-98.0); Mean Platelet Volume 9.2 fL (9.4-12.4); Monocytes Absolute Auto 0.8 X10*3/uL (0.1-1.2); Monocytes Percent Auto 9.6 % (2-11); Neutrophils Absolute Auto 4.9 x10*3/uL (2.0-8.3); Neutrophils Percent Auto 60.2 % (45-73); Nitrite Urine Negative (Negative); PH 5.5 (5.0-9.0); Platelet Count 235 X10*3/uL (160-400); Red Blood Count 4.72 X10*6/uL (4.60-5.80); Red Cell Distribution Width 12.3 % (11.0-16.0); UMIC TRIGGER UACC YES; Urine Blood Negative (Negative); Urine Ketones Trace mg/dL (Negative); Urine Protein Negative (Neg-Trace); White Blood Count 8.2 X10*3/uL (4.8-10.8)
[2024-07-04 11:07] LABS: Bacteria Urine None Seen (None Seen); Hyaline Casts Urine 0-2 /LPF (0-2); RBC Urine 0-2 /HPF (0-2); Squamous Epithelial Cell Urine 0-2 /HPF (0-2); WBC Urine 0-5 /HPF (0-5)
[2024-07-04 11:26] LABS: Alanine Aminotransferase 25 U/L (0-40); Albumin Level 4.3 g/dL (3.5-5.0); Alkaline Phosphatase 89 U/L (39-117); Anion Gap 11 (12-20); Aspartate Amino Transferase 23 U/L (5-37); Bilirubin Total 0.4 mg/dL (0.0-1.0); Blood Urea Nitrogen 15 mg/dL (9-16); Calcium 9.7 mg/dL (8.4-10.2); Carbon Dioxide 28 mmol/L (22-29); Chloride 105 mmol/L (96-108); Cholesterol 192 mg/dL (<200); Estimated Glomerular Filt Rate > 60; Glucose Fasting 100 mg/dL (60-99); HDL Cholesterol 44 mg/dL (>40); LDL Cholesterol Calculated 122 mg/dL (<100); Potassium 3.9 mmol/L (3.3-5.1); Sodium 140 mmol/L (135-145); Total Protein 7.6 g/dL (6.5-8.0); Triglycerides 131 mg/dL (<150)
[2024-07-04 11:33] LABS: PSA,Total (Free>4and<10) 3.59 ng/mL (0.00-4.00)
== END 2024-07-04 10:42 | disposition home or self-care (01) ==
LOC: HO.LNP 10:41
PROVIDERS: Visit Provider Internal Medicine
DX: Z00.00 Encounter for general adult medical examination without abnormal findings (principal); E78.6 Lipoprotein deficiency; R97.20 Elevated prostate specific antigen [PSA]; Z12.5 Encounter for screening for malignant neoplasm of prostate
CPT/HCPCS: 80053; 80061; 81001; 84153; 85025

== ENCOUNTER 2024-07-22 08:31 | Outpatient (AMB) | payer BC, SELFPAY ==
--- NOTE | 2024-07-22 08:52 | A.OFFVIS_ITS ---
Vital Signs 07/22/24 08:53 Height 5 ft 6 in Weight 211 lb BMI 34.1 BP 100/62 Blood Pressure Location Lt brachial Position Sitting Pulse 59 Pulse Source Monitor Intake Visit Reasons: 1Y follow up Intake Note: 1 yr f/up Tire Adjuster Required: No Accompanied by: Self / Same As Patient Allergies No Known Allergies Allergy (Verified 07/12/23 13:50) Medication List - Last Reconciled 07/22/24 by Michele Kenney MD citalopram 20 mg PO DAILY cyclobenzaprine 10 mg PO TID PRN hyoscyamine sulfate ER 0.375 mg PO Q12H metoprolol succinate ER 25 mg PO DAILY naproxen 500 mg PO BID PRN HPI Comments Details: 53-year-old gentleman with history of viral myocarditis. He is here for follow- up. He has been doing well. Off and on his notice atypical pressure of feeling on the left upper chest which happens randomly. No exertional symptoms. He underwent cardiac catheterization when he was transferred from [place] with myocarditis and he did not have any significant coronary disease. He was previously started on metoprolol succinate but he stopped taking that. No palpitations. No dizziness or syncope. He has not been exercising in and he has gained some weight and feels fatigued. 07/12/23: He returns for follow-up. On previous visit he was asking about exercise and we did exercise stress testing on him where he was able to achieve 10.1 metabolic equivalents without any significant EKG changes. He had 1 premature ventricular complexes during exercise. He was advised to start exercising regularly. He returns and has not been doing well. No chest discomfort or shortness of breath. He has been exercising 2 times a week without any issues. Taking medications regularly and is currently on Toprol-XL 25 mg once a day. 07/22/24: He is here for f/u. He had right knee surgery due to an injury and ligament tear. He is currently in a brace. No cardiovascular complaints. No chest discomfort shortness of breath no palpitations. He is taking Toprol-XL 25 mg daily. He recently had blood workup which showed LDL cholesterol of 120. 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 Review of Systems Const Denies chills, Denies fatigue, Denies fever(s), Denies frequent falls, Denies w eakness, Denies weight gain and Denies weight loss ENT Denies dizziness Card Denies chest pain, Denies leg edema, Denies lightheadedness, Denies palpi tations, Denies dyspnea and Denies dyspnea on exertion Resp Denies cough, Denies dyspnea and Denies dyspnea on exertion GI Denies hematochezia Musc Denies abnormal gait, Denies muscle weakness, Denies numbness, Denies radiating pain into limb and Denies tingling Neuro Denies abnormal gait, Denies dizziness, Denies frequent falls, Denies numbness, Denies tingling and Denies weakness Endo Denies fatigue and Denies palpitations Physical Exam Vital Signs: Last Vital Signs Pulse 59 07/22/24 08:53 BP 100/62 07/22/24 08:53 BMI result Body Mass Index 34.1 GENERAL APPEARANCE: in no acute distress, pleasant. NECK: no carotid bruit, no jugular venous distention. SKIN: no suspicious lesions, warm and dry. HEART: no murmurs, regular rate and rhythm. LUNGS: clear to auscultation bilaterally. ABDOMEN: soft, nontender. EXTREMITIES: no edema. Right leg is in brace. PERIPHERAL PULSES: equal. NEUROLOGIC: No gross deficits, AAO X 3 Office Procedures EKG Details: Sinus bradycardia 59 beats per minute, normal axis, QTC 388 milliseconds. 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 He has history of viral myocarditis. He has been doing well. He is currently taking Toprol-XL 25 mg daily. He had no chest pain or shortness of breath no syncope or palpitations. Previous stress testing was normal. I have advised him to continue taking Toprol-XL for now. LDL is 120. He has been sedentary since March after knee injury. I think his target for LDL is less than 100. As he becomes more active we can repeat LDL in few months. He will see us PRN. Thank you for allowing me to participate in the care of your patient. Please feel free to contact me if you have any questions. 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
[2024-07-22 08:53] VITALS: BP 100/62; PULSE 59; BMI 34.1
== END 2024-07-22 09:17 | disposition home or self-care (01) ==
PROVIDERS: PCP Internal Medicine; Visit Provider Internal Medicine Cardiovascular Disease
DX: I40.0 Infective myocarditis (principal)
CPT/HCPCS: 93010; 99214

== ENCOUNTER → 2024-07-22 08:31 | Outpatient (BNVA) | payer OTHER, SELFPAY | PROVIDERS: PCP Internal Medicine; Visit Provider Internal Medicine Cardiovascular Disease | DX: I40.0 Infective myocarditis (principal); Z79.899 Other long term (current) drug therapy | CPT/HCPCS: 93005 ==

== ENCOUNTER 2025-07-03 09:27 | Outpatient (REF) | payer BC, SELFPAY ==
--- OUTSIDE RECORDS SUMMARY | 2024-10-02 02:30 | XMS_ITS ---
Author Organization Michael Simms MD Address [address] [place] [address] [address] [place] [phone] Care Team Providers Care Upkeep Mechanic Name Role Phone Michael Simms Primary Care Provider [phone] REASON FOR VISIT Covid Positive Test Encounters Encounter Location Date Provider Diagnosis Michael Simms MD [address] [place] [address] [address] [place] [phone] 10/02/2024 Michael Simms Plan Of Treatment Next Appt Details Provider Name:Michael Craven ier, 07/10/2025 02:30:00 PM, [address] [place] [address], [place] [address], [place], [place], [phone], Progress Notes * Ean LAUGHLINDOB: 8 (54 yo M)Acc No.[id number]:10/02/2024 Patient: Ean Hope :1970 A ge:54 Y S ex:Male Address:[address] [place] [id number] * true * Date: Generated for Ricardoi hernandez/Filig/eTransmitting on: 0 07/03/2025 10:31 AM EDT
--- OUTSIDE RECORDS SUMMARY | 2025-01-06 09:30 | XMS_ITS ---
Author Organization Michael Simms MD Address [address] [place] [phone] Care Team Providers Care Ic Design Manager Name Role Phone Michael Simms Primary Care Provider [phone] Allergies No Known Allergies REASON FOR VISIT 6 month IBS Medications Medication SIG (Take, Route, Frequency, Duration) Notes Start Date End Date Status Hyoscyamine Sulfate ER 0.375 MG TAKE 1 TABLET BY MOUTH EVERY 12 HOURS Active Metoprolol Succinate ER 25 MG 1 tablet Orally Once a day for 30 day(s) Active Citalopram Hydrobromide 20 MG TAKE 1 TABLET BY MOUTH EVERY DAY Active LORazepam 0.5 MG 1 tablet as needed Orally Once a day for 30 days 11/22/2019 Not-Taking Vital Signs Blood pressure systolic 102 mm Hg 01/07/20 25 Blood pressure diastolic 80 mm Hg 025 Height 67.5 in 01/06/2025 Weight 220 lbs 01/06/2025 BMI 33.94 kg/m2 01/06/2025 weight is up 8 pounds since 07-09-24 Encounters Encounter Location Date Provider Diagnosis Michael Simms MD [address] [place] [address] Drive [address] [place] [phone] 01/06/2025 Michael Simms Irritable bowel syndrome without diarrhea K58.9 and Anxiety F41.9 Assessments Encounter Date Diagnosis (ICD Code) Assessment Notes Treatment Notes Treatment Clinical Notes Section Notes 01/06/2025 Irritable bowel syndrome without diarrhea (ICD-10 - K58.9) is stable. contimue with present meds 01/06/2025 Anxiety (ICD-10 - F41.9) doing well on meds Plan Of Treatment Medication Medication Name Sig Start Date Stop Date Notes Hyoscyamine Sulfate ER 0.375 MG TAKE 1 T ABLET BY MOUTH EVERY 12 HOURS Citalopram Hydrobromide 20 MG TAKE 1 TAB LET BY MOUTH EVERY DAY Treatment Notes Assessment Notes Irritable bowel syndrome without diarrhe a is stable. contimue with present meds Anxiety doing well on meds Next Appt Details Provider Name:Michael Craven ier, 07/10/2025 02:30:00 PM, [address] [place] [address], [address], [place], [place], [phone], Progress Notes * Ean LAUGHLINDOB: 8 (54 yo M)Acc No.[id number]:01/06/2025 Progress Notes Patient: Ean RIVER Provider: Jena Simms MD :1970 A ge:54 Y S ex:Male Date:01/06/2025 Address:[address] [place], [place] [phone] Subjective: * Chief Complaints: * 6 month IBS * HPI: S ymptom(s): patient is a 54 yo male here for 6 month follow up visit, had acl surgery in may. last visit few weeks ago had a cortisone shot. aric alford did surgery. * ROS: G eneral/Constitutional: Denies C hills. D enies F atigue. D enies F ever. D enies H eadache. E NT: Patient denies d ecreased sense of smell, any loss of taste, sore throat. D enies S ore throat. R espiratory: Denies C ough. D enies S hortness of breath at rest. D enies S hortness of breath with exertion. C ardiovascular: Denies C hest pain at rest. D enies C hest pain with exertion. D enies D izziness. D enies P alpitations. D enies S hortness of breath. G astrointestinal: Denies D iarrhea. D enies N ausea. M usculoskeletal: Patient denies m uscle aches. P eripheral Vascular: Patient denies r ed and blue toes. h as some effects of he ibs but stable. * Medical History: * Surgical History: * Hospitalization/Major Diagno stic Procedure: * Medications: T akingMetoprolol Succinate ER 25 MG Tablet Extended Release 24 Hour 1 tablet Orally Once a day Hyoscyamine Sulfate ER 0.375 MG Tablet Extended Release 12 Hour TAKE 1 TABLET BY MOUTH EVERY 12 HOURS Citalopram Hydrobromide 20 MG Tablet TAKE 1 TABLET BY MOUTH EVERY DAY Taking Metoprolol Succinate ER 25 MG Tablet Extended Release 24 Hour 1 tablet Orally Once a day Taking Hyoscyamine Sulfate ER 0.375 MG Tablet Extended Release 12 Hour TAKE 1 TABLET BY MOUTH EVERY 12 HOURS Taking Citalopram Hydrobromide 20 MG Tablet TAKE 1 TABLET BY MOUTH EVERY DAY Not-Taking/PRNLORazepam 0.5 MG Tablet 1 tablet as needed Orally Once a day Medication List reviewed and reconciled with the patientNot-Taking/PRN LORazepam 0.5 MG Tablet 1 tablet as needed Orally Once a day Medication List reviewed and reconciled with the patient * Allergies: N .K.D.A.yes[Allergies Verified] Objective: * Vitals: H t: 67.5, Wt: 220, BMI:33.94, BP:102/80, Wt-k.79. weight is up 8 pounds since 07-09-24. * Examination: G eneral Examination: GENERAL APPEARANCE: a lert, well hydrated, in no distress.? HEAD: n ormocephalic. SKIN: g ood turgor. HEART: r egular rate and rhythm, no murmurs, rubs, gallops.? LUNGS: n o wheezes, rales, rhonchi, good air movement, clear to auscultation bilaterally. ABDOMEN: s oft, nontender, nondistended, no rebound tenderness, no organomegaly. Assessment: * Assessment: 1. I rritable bowel syndrome without diarrhea - K58.9 (Primary) 2 . A nxiety - F41.9 Plan: * Treatment: 2. A nxiety Continue Citalopram Hydrobromide Tablet, 20 MG, TAKE 1 TABLET BY MOUTH EVERY DAY. Notes: doing well on meds * Procedure Codes: * * Sign off status: Completed true * Provider: Jena Simms MD Date: 0 01/06/2025 Generated for Aravind ng/Lavon/Robbitting on: 0 07/03/2025 10:30 AM EDT History and Physical Notes * HPI (History of Present Illness) Category Sub-Category Detail Notes Category Not es Symptom(s) patient is a 54 yo male here for 6 month follow up visit, had acl surgery in may. last visit few weeks ago had a cortisone shot. aric alford did surgery. Examination Category Sub-Category Detail Notes Category Not es General Examination GENERAL APPEARANCE: alert, w ell hydrated, in no distress HEAD: normocephalic HEART: regular rate and rhy thm, no murmurs, rubs, gallops LUNGS: no wheezes, rales, r honchi, good air movement, clear to auscultation bilaterally ABDOMEN: soft, nontender, non distended, no rebound tenderness, no organomegaly SKIN: good turgor
--- OUTSIDE RECORDS SUMMARY | 2025-07-03 03:45 | XMS_ITS ---
Author Organization Michael Simms MD Address [address] [place], [place] [id number] Care Team Providers Care Service Line Coordinator Name Role Phone Michael Simms Primary Care Provider Results Component Value Reference Range Notes Complete Blood Count Auto Di ff (Not yet reviewed by provider) Interpretation: Performing Lab:[facility], [address] [place] [id number] Notes/Report: White Blood Count 6.9 4.8-10.8 X10*3/uL Red Blood Count 4.58 4.60-5.80 X10*6/uL Hemoglobin 14.8 14.0-18.0 g/dl Hematocrit 43.2 42.0-52.0 % Mean Corpuscular Volume 94.3 80.0-98.0 fL Mean Corpuscular Hemoglobin 32.3 27.0-33.0 pg Mean Corpuscular HGB Conc 34.3 31.0-36.0 g/dl Red Cell Distribution Width 12.2 11.0-16.0 % Platelet Count 224 160-400 X10*3/uL Mean Platelet Volume 9.1 9.4-12.4 fL Neutrophils Percent Auto 57.3 45-73 % Imm Gran Pct Auto 0.3 0.0-0.4 % Lymphocytes Percent Auto 29.4 20-40 % Monocytes Percent Auto 10.1 2-11 % Eosinophils Percent Auto 2.3 0-4 % Basophils Percent Auto 0.6 0-2 % NRBC Pct Auto 0.0 0.0-0.2 /100WBC Neutrophils Absolute Auto 4.0 2.0-8.3 x10*3/u L Imm Gran Abs Auto 0.02 0.00-0.03 X10*3/uL Lymphocytes Absolute Auto 2.0 1.2-4.9 X10*3/u L Monocytes Absolute Auto 0.7 0.1-1.2 X10*3/uL Eosinophils Absolute Auto 0.2 0.0-0.4 X10*3/u L Basophils Absolute Auto 0.0 0.0-0.2 X10*3/uL NRBC Abs Auto 0.000 0.0-0.012 X10*3/uL Comprehensive Preston. Panel Fa (Not yet reviewed by provider) Interpretation: Performing Lab:[address] [phone] Notes/Report: Sodium 140 135-145 mmol/L Potassium 4.0 3.3-5.1 mmol/L Chloride 106 96-108 mmol/L Carbon Dioxide 29 22-29 mmol/L Anion Gap 9 12-20 Blood Urea Nitrogen 21 9-16 mg/dL Creatinine 0.98 0.5-1.4 mg/dL Estimated Glomerular Filt Rate > 60 Chronic Kidney Disease: Estimated GFR < 60 mL/min/1.73m2 Severe Kidney Disease: Estimated GFR < 15 mL/min/1.73m2 Glucose Fasting 101 60-99 mg/dL A fasting glucose from 100-125 mg/dl is considered impaired (pre-diabetes). Calcium 9.0 8.4-10.2 mg/dL Bilirubin Total 0.3 0.0-1.0 mg/dL Aspartate Amino Transferase 38 5-37 U/L Alanine Aminotransferase 35 0-40 U/L Total Protein 7.1 6.5-8.0 g/dL Albumin Level 4.4 3.5-5.0 g/dL Alkaline Phosphatase 80 39-117 U/L Lipid Panel (Not yet review ed by provider) Interpretation: Performing Lab:[address] [phone] Notes/Report: Triglycerides 125 <150 mg/dL Desirable Triglyceride: less than 150 mg/dL Borderline High Triglyceride 150-199 mg/dL High Triglyceride: 200-499 mg/dL Very High Triglyceride: greater than or equal to 5OO mg/dL Cholesterol 171 <200 mg/dL Desirable Cholesterol: less than 200 mg/dL Borderline High Cholesterol: 200-239 mg/dL High Cholesterol: greater than 239 mg/dL LDL Cholesterol Calculated 112 <100 mg/dL Desirable LDL: less than 100 mg/dL Near Optimal/Above Optimal LDL: 110-129 mg/dL Borderline High LDL: 130-159 mg/dL High LDL: 160-189 mg/dL Very High LDL: greater than or equal to 190 mg/dL HDL Cholesterol 34 >40 mg/dL Desirable HDL: greater than 40 mg/dL Note: This HDL assay may give artificially low results in patients with liver disease. UA ClnCatch+Micro w/rflx Cul t (Not yet reviewed by provider) Interpretation: Performing Lab:[facility], [address] [place] [phone] Notes/Report: Urine, Clean Catch Color Urine Yellow Appearance Urine Clear PH 5.5 5.0-9.0 Glucose Urine UA Negative Negative mg/dL Urine Blood Negative Negative Specific [place] - Urine 1.025 1.005-1.025 Urine Protein Negative Neg-Trace mg/dL Urine Ketones Negative Negative mg/dL Nitrite Urine Negative Negative Leukocyte Esterase Urine Negative Negative RBC Urine 0-2 0-2 /HPF WBC Urine 0-5 0-5 /HPF Squamous Epithelial Cell Urine 0-2 0-2 /HPF Bacteria Urine None Seen None Seen Hyaline Casts Urine 0-2 0-2 /LPF REASON FOR VISIT yearly fasting labs Encounters Encounter Location Date Provider Diagnosis Michael Simms MD [address] [facility] [address] [place], [place] [phone] 07/03/2025 Michael Simms Blood tests for routine general physical examination Z00.00 ; Low HDL (under 40) E78.6 and Elevated PSA R97.20 Assessments Encounter Date Diagnosis (ICD Code) Assessment Notes Treatment Notes Treatment Clinical Notes Section Notes 07/03/2025 Blood tests for routine general physical examination (ICD-10 - Z00.00) 07/03/2025 Low HDL (under 40) (ICD-10 - E78.6) 07/03/2025 Elevated PSA (ICD-10 - R97.20) Plan Of Treatment Pending Test Test Name Order Date Complete Blood Count Auto Diff 5 Comprehensive [place]. Panel Fast 5 Lipid Panel 07/03/2025 PSA,Total (Free>4and<10) 07/03/2025 UA ClnCatch+Micro w/rflx Cult 07/03/2025 Next Appt Details Provider Name:Michael Craven ier, 07/10/2025 02:30:00 PM, [address] [place] [address], [address], [place], [place], [phone], Progress Notes * Ean LAUGHLINDOB: 8 (54 yo M)Acc No.[id number]:07/03/2025 Progress Note Patient: Ean RIVER Provider: Jena Simms MD :1970 A ge:54 Y S ex:Male Date:07/03/2025 Address:[address] [place], [place] [phone] Subjective: * Chief Complaints: * 1 . Yearly fasting labs. * Medical History: Objective: * Vitals: Assessment: * Assessment: 1. B lood tests for routine general physical examination - Z00.00 (Primary) 2 .?Low HDL (under 40) - E78.6 3 . E levated PSA - R97.20 Plan: * Treatment: 2. L ow HDL (under 40) L AB: Complete Blood Count Auto Diff (Collection Date & Time - 07/03/2025 07:45 AM) L AB: Comprehensive [place]. Panel Fast (Collection Date & Time - 07/03/2025 07:45 AM) L AB: Lipid Panel (Collection Date & Time - 07/03/2025 07:45 AM) L AB: PSA,Total (Free>4and<10) L AB: UA ClnCatch+Micro w/rflx Cult (Collection Date & Time - 07/03/2025 07:45 AM) 3. E levated PSA L AB: Complete Blood Count Auto Diff (Collection Date & Time - 07/03/2025 07:45 AM) L AB: Comprehensive Preston. Panel Fast (Collection Date & Time - 07/03/2025 07:45 AM) L AB: Lipid Panel (Collection Date & Time - 07/03/2025 07:45 AM) L AB: PSA,Total (Free>4and<10) L AB: UA ClnCatch+Micro w/rflx Cult (Collection Date & Time - 07/03/2025 07:45 AM) * Procedure Codes: 3 6415 VENIPUNCT, ROUTINE* * * The named appointment provid er may or may not be the originator of this progress note, and it is not deemed complete until electronically signed by the appointment provider. Sign off status: Pending * Provider: Jena Simms MD Date: 0 07/03/2025 Generated for Aravind ng/Lavon/Robbitting on: 0 07/03/2025 10:31 AM EDT
[2025-07-03 09:32] LABS: MANUAL DIFF FLAG NO
[2025-07-03 09:44] LABS: Hematocrit 43.2 % (42.0-52.0); Hemoglobin 14.8 g/dl (14.0-18.0); Imm Gran Abs Auto 0.02 X10*3/uL (0.00-0.03); Imm Gran Pct Auto 0.3 % (0.0-0.4); Lymphocytes Absolute Auto 2.0 X10*3/uL (1.2-4.9); Mean Corpuscular HGB Conc 34.3 g/dl (31.0-36.0); Mean Corpuscular Hemoglobin 32.3 pg (27.0-33.0); Mean Corpuscular Volume 94.3 fL (80.0-98.0); NRBC Abs Auto 0.000 X10*3/uL (0.0-0.012); NRBC Pct Auto 0.0 /100WBC (0.0-0.2); Platelet Count 224 X10*3/uL (160-400); Red Blood Count 4.58 X10*6/uL (4.60-5.80); White Blood Count 6.9 X10*3/uL (4.8-10.8)
[2025-07-03 09:49] LABS: Appearance Urine Clear; Glucose Urine UA Negative (Negative); PH 5.5 (5.0-9.0); Specific Gravity - Urine 1.025 (1.005-1.025)
[2025-07-03 10:08] LABS: Alanine Aminotransferase 35 U/L (0-40); Albumin Level 4.4 g/dL (3.5-5.0); Alkaline Phosphatase 80 U/L (39-117); Anion Gap 9 (12-20); Aspartate Amino Transferase 38 U/L (5-37); Blood Urea Nitrogen 21 mg/dL (9-16); Calcium 9.0 mg/dL (8.4-10.2); Carbon Dioxide 29 mmol/L (22-29); Chloride 106 mmol/L (96-108); Cholesterol 171 mg/dL (<200); Estimated Glomerular Filt Rate > 60; HDL Cholesterol 34 mg/dL (>40); Potassium 4.0 mmol/L (3.3-5.1); Sodium 140 mmol/L (135-145); Total Protein 7.1 g/dL (6.5-8.0); Triglycerides 125 mg/dL (<150)
--- OUTSIDE RECORDS SUMMARY | 2025-07-03 10:31 | XMS_ITS | Patient Health Record ---
Author Organization Michael Simms MD Address [address] [place], [place] [id number] Care Team Providers Care Mill Operator Name Role Phone Michael Simms Primary Care Provider Allergies No Known Allergies Results Component Value Reference Range Notes Complete Blood Count Auto Di ff Reviewed date:07/04/2024 12:14:11 PM Interpretation: Performing Lab:[facility], [address] [place] [phone] Notes/Report: White Blood Count 8.2 4.8-10.8 X10*3/uL Red Blood Count 4.72 4.60-5.80 X10*6/uL Hemoglobin 15.2 14.0-18.0 g/dl Hematocrit 44.7 42.0-52.0 % Mean Corpuscular Volume 94.7 80.0-98.0 fL Mean Corpuscular Hemoglobin 32.2 27.0-33.0 pg Mean Corpuscular HGB Conc 34.0 31.0-36.0 g/dl Red Cell Distribution Width 12.3 11.0-16.0 % Platelet Count 235 160-400 X10*3/uL Mean Platelet Volume 9.2 9.4-12.4 fL Neutrophils Percent Auto 60.2 45-73 % Imm Gran Pct Auto 0.1 0.0-0.4 % Lymphocytes Percent Auto 26.7 20-40 % Monocytes Percent Auto 9.6 2-11 % Eosinophils Percent Auto 2.7 0-4 % Basophils Percent Auto 0.7 0-2 % NRBC Pct Auto 0.0 0.0-0.2 /100WBC Neutrophils Absolute Auto 4.9 2.0-8.3 x10*3/u L Imm Gran Abs Auto 0.01 0.00-0.03 X10*3/uL Lymphocytes Absolute Auto 2.2 1.2-4.9 X10*3/u L Monocytes Absolute Auto 0.8 0.1-1.2 X10*3/uL Eosinophils Absolute Auto 0.2 0.0-0.4 X10*3/u L Basophils Absolute Auto 0.1 0.0-0.2 X10*3/uL NRBC Abs Auto 0.000 0.0-0.012 X10*3/uL Comprehensive [place]. Panel Fa st Reviewed date:07/04/2024 12:12:13 PM Interpretation: Performing Lab:[facility], [address] [place] [phone] Notes/Report: Sodium 140 135-145 mmol/L Potassium 3.9 3.3-5.1 mmol/L Chloride 105 96-108 mmol/L Carbon Dioxide 28 22-29 mmol/L Anion Gap 11 12-20 Blood Urea Nitrogen 15 9-16 mg/dL Creatinine 1.05 0.5-1.4 mg/dL Estimated Glomerular Filt Rate > 60 NOTE: For -[place] individuals, multiply the result by 1.210. Chronic Kidney Disease: Estimated GFR < 60 mL/min/1.73m2 Severe Kidney Disease: Estimated GFR < 15 mL/min/1.73m2 Glucose Fasting 100 60-99 mg/dL A fasting glucose from 100-125 mg/dl is considered impaired (pre-diabetes). Calcium 9.7 8.4-10.2 mg/dL Bilirubin Total 0.4 0.0-1.0 mg/dL Aspartate Amino Transferase 23 5-37 U/L Alanine Aminotransferase 25 0-40 U/L Total Protein 7.6 6.5-8.0 g/dL Albumin Level 4.3 3.5-5.0 g/dL Alkaline Phosphatase 89 39-117 U/L Lipid Panel Reviewed date:07/04/2024 12:03:31 PM Interpretation: Performing Lab:[facility], [address] [place] [phone] Notes/Report: Triglycerides 131 <150 mg/dL Desirable Triglyceride: less than 150 mg/dL Borderline High Triglyceride 150-199 mg/dL High Triglyceride: 200-499 mg/dL Very High Triglyceride: greater than or equal to 5OO mg/dL Cholesterol 192 <200 mg/dL Desirable Cholesterol: less than 200 mg/dL Borderline High Cholesterol: 200-239 mg/dL High Cholesterol: greater than 239 mg/dL LDL Cholesterol Calculated 122 <100 mg/dL Desirable LDL: less than 100 mg/dL Near Optimal/Above Optimal LDL: 110-129 mg/dL Borderline High LDL: 130-159 mg/dL High LDL: 160-189 mg/dL Very High LDL: greater than or equal to 190 mg/dL HDL Cholesterol 44 >40 mg/dL Desirable HDL: greater than 40 mg/dL Note: This HDL assay may give artificially low results in patients with liver disease. PSA,Total (Free>4and<10) Reviewed date:07/04/2024 12:03:40 PM Interpretation: Performing Lab:[facility], [address] [place] [phone] Notes/Report: PSA,Total (Free>4and<10) 3.59 0.00-4.00 ng/mL A Free PSA was not performed: The percentage of Free PSA can be used to enhance the differentiation of prostate cancer from benign prostatic disease in subjects whose PSA levels are between 4.0 and 10.0 ng/mL. For subjects whose PSA levels are below 4.0 or above 10.0 ng/mL, the risk of prostate cancer is determined on the basis of the PSA alone. Therefore the % Free PSA is recommended only for those subjects whose PSA levels are between 4.0 and 10.0 ng/mL. PSA methodology: Brody Alinity i Chemiluminescent Microparticle Immunoassay (CMIA) UA ClnCatch+Micro w/rflx Cul t Reviewed date:07/04/2024 12:11:52 PM Interpretation: Performing Lab:[facility], [address] [place] [phone] Notes/Report: [id number] Urine, Clean Catch Color Urine Yellow Appearance Urine Clear PH 5.5 5.0-9.0 Glucose Urine UA Negative Negative mg/dL Urine Blood Negative Negative Specific Branch - Urine 1.020 1.005-1.025 Urine Protein Negative Neg-Trace mg/dL Urine Ketones Trace Negative mg/dL Nitrite Urine Negative Negative Leukocyte Esterase Urine Trace Negative RBC Urine 0-2 0-2 /HPF WBC Urine 0-5 0-5 /HPF Squamous Epithelial Cell Urine 0-2 0-2 /HPF Bacteria Urine None Seen None Seen Hyaline Casts Urine 0-2 0-2 /LPF Complete Blood Count Auto Di ff (Not yet reviewed by provider) Interpretation: Performing Lab:[facility], [address] [place] [address] Notes/Report: White Blood Count 6.9 4.8-10.8 X10*3/uL [...] NRBC Abs Auto 0.000 0.0-0.012 X10*3/uL Comprehensive [place]. Panel Fa st (Not yet reviewed by provider) Interpretation: Performing Lab:[address] [phone] Notes/Report: Sodium 140 135-145 mmol/L Potassium 4.0 [...] 80 39-117 U/L Lipid Panel (Not yet reviewe d by provider) Interpretation: Performing Lab:[address] [phone] Notes/Report: Triglycerides 125 <150 mg/dL Desirable Triglyceride: [...] (Not yet reviewed by provider) Interpretation: Performing Lab:[address] [place] [phone] Notes/Report: Urine, Clean Catch Color Urine Yellow Appearance Urine Clear PH 5.5 5.0-9.0 Glucose Urine UA Negative Negative mg/dL Urine Blood Negative Negative Specific Branch - Urine 1.025 1.005-1.025 Urine Protein Negative Neg-Trace mg/dL Urine Ketones Negative Negative mg/dL Nitrite Urine Negative Negative Leukocyte Esterase Urine Negative Negative RBC Urine 0-2 0-2 /HPF WBC Urine 0-5 0-5 /HPF Squamous Epithelial Cell Urine 0-2 0-2 /HPF Bacteria Urine None Seen None Seen Hyaline Casts Urine 0-2 0-2 /LPF Occult Blood, Stool, Guaiac Reviewed date:07/09/2024 02:48:44 PM Interpretation:Negative Performing Lab: Notes/Report: Negative Occult Blood, Stool, Guaiac Neg Reason For Referral No Information Medications Medication SIG (Take, Route, Frequency, Duration) Notes Start Date End Date Status Hyoscyamine Sulfate ER 0.375 MG TAKE 1 TABLET BY MOUTH EVERY 12 HOURS for 90 Active Metoprolol Succinate ER 25 MG 1 tablet Orally Once a day for 30 day(s) Active Citalopram Hydrobromide 20 MG TAKE 1 TABLET BY MOUTH EVERY DAY Active LORazepam 0.5 MG 1 tablet as needed Orally Once a day for 30 days 11/22/2019 Not-Taking Immunizations Vaccine Route Administration Date Status Comme nts Shingrix Unknown 01/21/2020 Administered [facility] Flu[facility]ix Quadrivalent Unknown 07/28/2020 [facility]ered [facility] Shingrix Unknown 07/28/2020 [facility]ered [facility] TDaP Unknown 06/07/2020 Administered SARS-COV-2 Moderna Unknown 11/18/2020 Administered SARS-COV-2 Moderna Unknown 12/16/2020 Administered Social History Tobacco Use: Social History Observation Description Date Details (start date - stop date) Never Smoker NA - NA Tobacco Use/Smoking Question Answer Notes Patient is a nonsmoker Additional Findings: Tobacco Non-User Cu rrent non-smoker, currently using no form of tobacco Alcohol Screen Question Answer Notes Did you have a drink containing alcohol in the p ast year? No Points 0 Interpretation Negative Problems Problem Type SNOMED Code ICD Code Onset Dates Problem Status W/U Status Risk Notes Problem 34269386 Anxiety (F41.9) Active confirmed Problem 30242572 Irritable bowel syndrome without diarrhea (K58.9) Active confirmed Problem 617481149 Body mass index (BMI) 30.0-30.9, adult (Z68.30) Active confirmed Problem 928474805 Low HDL (under 4 0) (E78.6) Active confirmed Problem 69666024 Intrinsic eczema (L20.84) Active confirmed Problem 49956132 Sleep apnea, unspecified type (G47.30) Active confirmed Problem 958143646 History of abnor mal electrocardiogram (Z86.79) Active confirmed Problem 096278617 Elevated PSA (R97.20) Active confirme d Problem 693688372 Body mass index (BMI) of 30.0-30.9 in adult (Z68.30) Active confirmed Vital Signs Blood pressure diastolic 80 mm Hg 01/06/2025 shanda ght is up 8 pounds since 07-09-24 Height 67.5 in 01/06/2025 weight is up 8 pounds since 07-09-24 Blood pressure systolic 102 mm Hg 01/06/2025 weig ht is up 8 pounds since 07-09-24 Weight 220 lbs 01/06/2025 weight is up 8 pounds since 07-09-24 BMI 33.94 kg/m2 01/06/2025 weight is up 8 pounds since 07-09-24 Encounters Encounter Location Date Provider Diagnosis Michael Simms MD [address] [place] [address] Drive [address] [place] [id number] 07/04/2024 Michael Simms Blood tests for routine general physical examination Z00.00 ; Low HDL (under 40) E78.6 and Elevated PSA R97.20 Michael Simms MD [address] [place] [address] Drive [address] [place] [id number] 07/03/2025 Michael Simms Blood tests for routine general physical examination Z00.00 ; Low HDL (under 40) E78.6 and Elevated PSA R97.20 Michael Simms MD [address] [place] [address] Drive [address] [place] [id number] 07/09/2024 Michael Simms Anxiety F41.9 ; Annual physical exam Z00.00 ; Elevated PSA R97.20 ; Irritable bowel syndrome without diarrhea K58.9 ; Sleep apnea, unspecified type G47.30 ; Colon cancer screening Z12.11 and Depression screening Z13.31 Michael Simms MD [address] [place] [id number] 01/06/2025 Michael Simms Irritable bowel syndrome without diarrhea K58.9 and Anxiety F41.9 Michael Simms MD [address] [place] [address] [id number] 08/20/2024 Michael Simms MD [address] [place] [id number] 10/02/2024 Michael Simms Assessments Encounter Date Diagnosis (ICD Code) Assessment Notes Treatment Notes Treatment Clinical Notes Section Notes 07/04/2024 Blood tests for routine general physical examination (ICD-10 - Z00.00) 07/04/2024 Low HDL (under 40) (ICD-10 - E78.6) 07/03/2025 Blood tests for routine general physical examination (ICD-10 - Z00.00) 07/09/2024 Anxiety (ICD-10 - F41.9) went to counselling and it helped, will continue current regiment 07/09/2024 Annual physical exam (ICD-10 - Z00.00) labs reviewed and discussed with patient 01/06/2025 Irritable bowel syndrome without diarrhea (ICD-10 - K58.9) is stable. contimue with present meds 07/04/2024 Elevated PSA (ICD-10 - R97.20) 07/03/2025 Low HDL (under 40) (ICD-10 - E78.6) 07/09/2024 Elevated PSA (ICD-10 - R97.20) goes up and down, will continue to monitor 01/06/2025 Anxiety (ICD-10 - F41.9) doing well on meds 07/03/2025 Elevated PSA (ICD-10 - R97.20) 07/09/2024 Irritable bowel syndrome without diarrhea (ICD-10 - K58.9) has been stable, will continue current regiment 07/09/2024 Sleep apnea, unspecified type (ICD-10 - G47.30) using machine, will good results 07/09/2024 Colon cancer screening (ICD-10 - Z12.11) guaiac negative 07/09/2024 Depression screening (ICD-10 - Z13.31) negative screen Plan Of Treatment Pending Test Test Name Order Date Electrocardiogram (EKG) 05/13/2016 Electrocardiogram (EKG) 06/14/2018 Electrocardiogram (EKG) 06/21/2019 Complete Blood Count Auto Diff 5 Comprehensive [place]. Panel Fast 5 Lipid Panel 07/03/2025 PSA,Total (Free>4and<10) 07/03/2025 UA ClnCatch+Micro w/rflx Cult 07/03/2025 Next Appt Details Provider Name:Michael Craven ier, 07/10/2025 02:30:00 PM, [address] [place] [address], [address], [place], [place], [id number], Insurance Providers Payer Name Payer Address Payer Phone Subscriber Number Group Number Insured Name Patient Relationship to Insured Coverage Start Date Coverage End Date [employer] [address] [place], [place] [phone] [id number] Ean Laughlin Self - patient is the insured Medical (General) History Medical History History ICD Code prostate biopsy - 09/25/2012 (Negative) Colonoscopy done 12/09/[address] Hill ([facility]) - repeat 10 years
--- OUTSIDE RECORDS SUMMARY | 2025-07-03 10:31 | XMS_ITS | Patient Health Record ---
Author Organization [facility] Address [address] [place] [address] Care Team Providers Care Banquet Pilot Name Role Phone Michael Simms MD Primary Care Provider Dorian Mo [phone] Allergies Allergen (clinical drug ingredient) Drug/Non Drug Allergy documented on EMR Reaction Allergy Type Onset Date Status pollen/seasonal (uncoded) Unknown Allergy Active Reason For Referral No Information Medications Medication SIG (Take, Route, Frequency, Duration) Notes Start Date End Date Status Multivitamin Adults - as directed Orally Active Hyoscyamine Sulfate ER 0.375 MG TAKE 1 TABLET BY MOUTH EVERY 12 HOURS Oral for 30 Active Citalopram Hydrobromide 20 MG TAKE 1 TABLET BY MOUTH EVERY DAY Oral for 30 Active Immunizations Vaccine Route Administration Date Status Comme nts Influenza Unknown 09/27/2019 Refused Social History Tobacco Use: Social History Observation Description Date Details (start date - stop date) Never Smoker NA - NA Tobacco Use/Smoking Question Answer Notes Patient is a nonsmoker Alcohol Screen Question Answer Notes Did you have a drink containing alcohol in the p ast year? No Points 0 Interpretation Negative Section Notes: Nonsmoker; no sig alcohol Problems Problem Type SNOMED Code ICD Code Onset Dates Problem Status W/U Status Risk Notes Problem 714065199 Encounter for screening for malignant neoplasm of colon (Z12.11) Active confirmed Problem [id number] Preprocedural examination (Z01.818) Active confirmed Plan Of Treatment Future Test Test Name Order Date COLONOSCOPY 09/27/2019 Insurance Providers Payer Name Payer Address Payer Phone Subscriber Number Group Number Insured Name Patient Relationship to Insured Coverage Start Date Coverage End Date [facility] [address] [place] [phone] [id number] GRICELDA SCHAFFER Self - patient is the insured Medical (General) History Medical History History ICD Code Denies RI,DM,CVA,Lung disease,renal dise ase IBS Sleep apnea--uses a nasal CPAP Anxiety Surgical History Surgery Date(Month/Year) Spinal fusion 2002 Cyst removal right middlle finger
[2025-07-03 10:34] LABS: PSA,Total (Free>4and<10) 7.03 ng/mL (0.00-4.00)
[2025-07-08 13:47] LABS: Free Prostate Spec Ag 1.4 ng/mL; Percent Free Prostate Spec Ag 19 % (calc) (>25)
== END 2025-07-03 09:28 | disposition home or self-care (01) ==
LOC: HO.LNP 09:27
PROVIDERS: Visit Provider Internal Medicine
DX: Z00.00 Encounter for general adult medical examination without abnormal findings (principal); Z12.5 Encounter for screening for malignant neoplasm of prostate; R97.20 Elevated prostate specific antigen [PSA]; E78.6 Lipoprotein deficiency
CPT/HCPCS: 80053; 80061; 81001; 84153; 84154; 85025